=== PATIENT | female | born 1950 | race African-American/Black ===

== ENCOUNTER 2019-10-29 01:47 | Day surgery (SDC) | payer MEDICARE, BC, SELFPAY ==
[2019-10-22 13:33] VITALS: BMI 32.2
--- NOTE | ~2019-10-29 | XR_ITS ---
XR chest port-a-cath/central, XR fl guide central line place 10/29/2019 10:52 (accession [id number]), 10/29/2019 10:54 (accession [id number]) Indication: Insertion of portacatheter Procedure: Fluoroscopy was performed for the clinical service for portacatheter insertion. 87 seconds of fluoroscopy. One fluoroscopic image. Post insertion there is an AP portable chest. Comparison: CT dated 10/13/2019 Findings: Interval insertion of left IJ portacatheter, tip in the SVC. Heart size is normal. There ar e bilateral pulmonary nodules in the lower lungs, largest on the right measuring 2.8 cm. There is lob ulated appearance to the hilum bilaterally, consistent with lymphadenopathy. Impression: 1: Portacatheter tip in the SVC. 2: Bilateral pulmonary nodules with bilateral hilar adenopathy, consistent with metastases. Reviewed, dictated and finalized at location B. ICAL SERVICES PROFESSIONAL Impression: 1: Portacatheter tip in the SVC. 2: Bilateral pulmonary nodules with bilateral hilar adenopathy, consistent wit h metastases. Impression: 1: Portacatheter tip in the SVC. 2: Bilateral pulmonary nodules with bilateral hilar adenopathy, consistent wit h metastases.
[2019-10-29] MEDS: LACTATED RINGERS 1,000 ML 30 ML IV CONT (09:10)
[2019-10-29] MEDS: IBUPROFEN IV 800 MG/200 ML 800 MG/200 ML BAG 400 MG IVPB (09:15)
--- NOTE | 2019-10-29 09:15 | P.PNAN_ITS ---
Anes - Initial Pre Proc Eval Procedure: Operation Date: 10/29/19 10:00 Proposed Procedures p Insertion Port A Cath - Daniel Perera DO Date/Time: 10/29/19 09:15 Surgeon: Daniel Perera DO Pre Op Diagnosis: Malignant Neoplasm Of UOQ Right Breast Patient Data Age: 69 Gender: F Height: 1.6 m Weight: 82.55 kg Allergies Allergy/AdvReac Type Severity Reaction Status Date / Time Penicillins Allergy Intermediate Hives Verified 10/22/19 13:46 metformin AdvReac Unknown Nausea Verified 10/22/19 13:47 Home Medications Medication Instructions Recorded Confirmed Type calcium carbonate-vitamin D3 1 cap PO DAILY 09/11/19 10/28/19 History glimepiride 4 mg PO DAILY 09/11/19 10/28/19 History multivitamin 1 tablet PO DAILY 09/11/19 10/28/19 History letrozole 2.5 mg PO DAILY 10/13/19 10/28/19 History lisinopril-hydrochlorothiazide 1 tablet PO DAILY 10/13/19 10/28/19 History sitagliptin [Januvia] 100 mg PO DAILY 10/13/19 10/28/19 History aspirin 81 mg PO DAILY 10/22/19 10/28/19 History hydroxyzine HCl 25 mg PO BID PRN 10/22/19 10/28/19 History omeprazole 20 mg capsule,delayed See Rx Instructions PO DAILY 10/28/19 10/28/19 History release simvastatin 10 mg tablet 10 mg PO QPM tablet 10/28/19 10/28/19 History triamcinolone acetonide 0.5 % 1 applic TOPICAL TID PRN #454 gm 10/28/19 10/28/19 Rx topical cream zolpidem 5 mg tablet 5 mg PO .COMPLEX 10/28/19 10/28/19 History Patient hx anesthesia problems: none Family hx anesthesia problems: none PMFSH Past Medical History Medical History (Updated 10/29/19 @ 09:16 by Xander Washington MD) Arthritis Bone metastasis (~10/2018) Bronchitis Diabetes Dyspnea on exertion HTN (hypertension) Malignant neoplasm of unspecified site of right female breast Metastatic breast cancer Other hyperlipidemia 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 Reactive depression Sleep apnea, unspecified Surgical History Surgical History (Updated 10/28/19 @ 15:18 by Ida Trotter MD) History of bilateral mastectomy History of section History of dilation and curettage History of eye surgery lt eye, due to clogged tear duct History of left knee replacement Social History Social History Smoking status: Former smoker Second hand tobacco smoke exposure: No Smoking end date: 11/26/00 Additional smoking assessment comments: Smoked only as a teenager Alcohol intake: never Gender identity (if verbalized by the patient): Female Anes - Eval Final PreProcedure Day of Procedure 10/29/19 09:15 Informed Consent: The patient's anesthetic plan and its attendant risks and benefits were discussed with the patient/family/POA. Questions were solicited and answers provided to the satisfaction of the patient/family/POA.
[2019-10-29 09:31] LABS: INR 1.1; Prothrombin Time 13.4 Seconds (11.1-14.7)
--- NOTE | 2019-10-29 09:34 | PM.IMHP ---
H&P: HPI History of Present Illness Chief complaint: Malignant Neoplasm Of UOQ Right Breast Narrative: Aparna Edwards is a 69 year old female who [facility]. She has right breast cancer metastatice to the lung. She is in need of starting chemo. 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 Reactive depression Sleep apnea, unspecified Surgical History Surgical History History of bilateral mastectomy History of section History of dilation and curettage History of eye surgery lt eye, due to clogged tear duct History of left knee replacement Family History Family History Mother Hypertension Family history of type 2 diabetes mellitus Family history of diabetes mellitus in first degree relative Sibling Family history of congenital heart disease Family history of diabetes mellitus in first degree relative Other Diabetes mellitus Family history of throat cancer Social History Social History Smoking status: Former smoker Second hand tobacco smoke exposure: No Smoking end date: 11/26/00 Additional smoking assessment comments: Smoked only as a teenager Alcohol intake: never Gender identity (if verbalized by the patient): Female Meds Home Medications and Allergies Home Medications Medication Instructions Recorded Confirmed Type calcium carbonate-vitamin D3 1 cap PO DAILY 09/11/19 10/28/19 History glimepiride 4 mg PO DAILY 09/11/19 10/28/19 History multivitamin 1 tablet PO DAILY 09/11/19 10/28/19 History letrozole 2.5 mg PO DAILY 10/13/19 10/28/19 History lisinopril-hydrochlorothiazide 1 tablet PO DAILY 10/13/19 10/28/19 History sitagliptin [Januvia] 100 mg PO DAILY 10/13/19 10/28/19 History aspirin 81 mg PO DAILY 10/22/19 10/28/19 History hydroxyzine HCl 25 mg PO BID PRN 10/22/19 10/28/19 History omeprazole 20 mg capsule,delayed See Rx Instructions PO DAILY 10/28/19 10/28/19 History release simvastatin 10 mg tablet 10 mg PO QPM tablet 10/28/19 10/28/19 History triamcinolone acetonide 0.5 % 1 applic TOPICAL TID PRN #454 gm 10/28/19 10/28/19 Rx topical cream zolpidem 5 mg tablet 5 mg PO .COMPLEX 10/28/19 10/28/19 History Allergies Allergy/AdvReac Type Severity Reaction Status Date / Time Penicillins Allergy Intermediate Hives Verified 10/22/19 13:46 metformin AdvReac Unknown Nausea Verified 10/22/19 13:47 Exam Const: General: alert; No acute distress Orientation/consciousness: oriented x3 Limitations: no limitations HENMT: Head: normocephalic and atraumatic Ears: hearing grossly normal bilaterally General nose exam: external nose normal and nares normal Mouth: Yes oral mucosae normal and Yes moist mucous membranes Eyes: General: appearance normal, both eyes and all related structures Conjunctivae: conjunctivae normal Sclera: sclerae normal Pupils: PERRL EOM: EOM intact bilaterally Neck: Neck: normal visual inspection, full ROM, no lymphadenopathy, supple and no JVD Lymphatic: no lymphadenopathy noted Chest: Chest palpation & inspection: normal inspection of the chest Resp: Effort & Inspection: normal respiratory effort and able to speak in complete sentences Auscultation: clear to auscultation bilaterally Percussion: percussion normal Cardio: Jugular venous distension: no JVD Rate: regular rate Rhythm: regular rhythm Heart sounds: S1 normal and S2 normal Peripheral pulses: pulses 2+
[2019-10-29] MEDS: CLINDAMYCIN 900 MG/NS 50 ML 900 MG/50 ML PIGGYBACK 50 MG IVPB (09:40)
--- NOTE | 2019-10-29 09:41 | PM.PROC ---
Procedure Note - Detailed Date of procedure: 10/29/19 Pre-op diagnosis: Malignant Neoplasm Of UOQ Right Breast Post-op diagnosis: same Procedure performed: Left internal jugular Port-A-Cath placement using ultrasound and fluoroscopic guidance Description of procedure: Procedure as well as risks, benefits, and alternatives were discussed with patient. Written consent was obtained and placed in chart prior to procedure. Patient was brought back to surgical suite. She was placed supine on operating table. Time-out was done confirm patient procedure. IV sedation was then administered by the Anesthesia Department. Her left chest and neck area was prepped and draped in sterile fashion using chlorhexidine prep. Patient was placed in Trendelenburg position. SonoSite ultrasound was used to identify the left internal jugular vein. It was visualized as a compressible vessel just lateral to the carotid artery. 1% lidocaine with epinephrine was infiltrated directly over the vessel under ultrasound guidance. An 18 gauge introducer needle was then advanced under ultrasound guidance directly into the left internal jugular vein. Dark nonpulsatile blood was aspirated. A 0.035 in guidewire was then advanced through the needle under fluoroscopic guidance. The guidewire was visualized advancing all the way down into the superior vena cava. 1% lidocaine with epinephrine was then infiltrated on the left anterior chest and along the tract up to the guidewire insertion site. A 3 cm incision was made with a 15 blade scalpel, and electrocautery was then used for dissection down through the subcutaneous tissue to the pectoral fascia. A pocket was created just inferior to the incision using blunt dissection. A small benton incision was then also made at the insertion site at the neck. The tunneler was then advanced from the chest incision up to the neck incision and the catheter tubing was brought up through this tract. The dilator and sheath were then advanced over the guidewire under fluoroscopic visualization. The dilator and guidewire were then removed leaving the sheath in place. The catheter tubing was then advanced through the sheath under fluoroscopic guidance. The sheath was unsnapped and carefully peeled away. The catheter tubing was released underneath the neck incision. Fluoroscopy was used to confirm proper placement of the catheter tubing and no kinks along its path. The catheter was then cut to proper length and secured to the port. The port was then accessed with a De Leon needle and aspirated and flushed with heparinized saline. The port function with ease. The port was then hep-locked with Hep-Lock solution. The port was then placed within the pocket that was created, and was secured to the fascia using 3 0 Prolene simple interrupted sutures. The patient was flattened out in bed. Jeff's fascia was reapproximated using 3 0 Vicryl simple interrupted sutures. The skin of the incisions was then approximated using 4-0 Monocryl subcuticular suture. Exofin glue was then applied on top. The patient was then awakened from anesthesia and transferred to recovery. Implants: Bard power port Anesthesia: MAC and local (1% lidocaine with epinephrine) Surgeon: Daniel Perera DO Estimated blood loss (mL): 5 Complications: No immediate complications Condition: stable Disposition: same day Findings: This is a 69-year-old woman with a known history of metastatic breast cancer who is in need of resuming chemotherapy. She has evidence of metastatic breast cancer to her lungs. Her breast cancer was originally on the right side. She also previously had a port placed on the right side which has since been removed. Discussions were made with the patient about treatment options, and decision was made to proceed with Port-A-Cath placement. Bard power port was placed via a left internal jugular vein approach on the left chest. SonoSite ultrasound guidance was used to identify t
[2019-10-29 09:58] VITALS: BP 168/88; PULSE 93; RESP 20; TEMP 36.3
[2019-10-29] MEDS: LIDO 1%/EPINEPHRINE 1:100,000 20 ML VIAL 10 ML INFILTRATE (10:02)
[2019-10-29] MEDS: HEPARIN SODIUM, PORCINE 10,000 UNITS/10 ML VIAL 1 UNITS IV PUSH (10:04)
[2019-10-29] MEDS: HEPARIN SODIUM 5,000 UNITS/ML VIAL 5000 UNITS IRRIGATION (10:07)
--- NOTE | 2019-10-29 10:26 | SUR.OPER ---
ebl=5ml
[2019-10-29 10:44] VITALS: BP 153/73; PULSE 103; RESP 16
[2019-10-29 11:00] VITALS: BP 152/77; PULSE 92; RESP 16
[2019-10-29 11:30] VITALS: BP 158/80; PULSE 96; RESP 16
[2019-10-29] MEDS: ONDANSETRON INJ 4 MG/2 ML VIAL IV PUSH (11:45)
[2019-10-29 12:00] VITALS: BP 171/80; PULSE 100; RESP 16
--- NOTE | 2019-10-29 12:18 | SUR.PHASEII ---
Addendum entered by Aisha Schwartz RN 10/29/19 14:19: 1200 late entry: PT STATES PAIN IS NOW 1/10 AND HAS NO NAUSEA. Original Note: 1145 PT C/O'D NAUSEA. ZOFRAN GIVEN. DR. FREGOSO CALLED FOR HYDROCODONE AND ZOFRAN SCRIPTS PER PT'S REQUEST.
== END 2019-10-29 12:10 | disposition home or self-care (01) ==
PROVIDERS: PCP Family Medicine; Visit Provider Surgery
PROC: (CPT 36561; principal; 2019-10-29 10:00)
DX: C50.411 Malignant neoplasm of upper-outer quadrant of right female breast (principal); I10 Essential (primary) hypertension; E78.5 Hyperlipidemia, unspecified; G47.30 Sleep apnea, unspecified; E11.9 Type 2 diabetes mellitus without complications; G62.82 Radiation-induced polyneuropathy; F32.9 Major depressive disorder, single episode, unspecified; Z87.891 Personal history of nicotine dependence; Z79.82 Long term (current) use of aspirin
CPT/HCPCS: 36561; 36415; 77001; 85610; 85730; A9270; C1788; J1100; J1644; J1741; J2250; J2405; J2704; J3010; J7030; J7120

== ENCOUNTER 2020-04-26 08:40 | Outpatient (CLI) | payer MEDICARE, MEDICAID, SELFPAY ==
--- NOTE | ~2020-04-26 | CT_ITS ---
EXAMINATION: CT chest abdomen pelvis w con EXAM DATE: 04/26/2020 09:40 INDICATION: Follow-up right-sided breast cancer, lung cancer. TECHNIQUE: Spiral CT of the chest, abdomen and pelvis was performed following intravenous injection o f 100 mL Omnipaque 350. Axial, coronal and sagittal images were reviewed. Coronal maximum intensity pixel images of chest reviewed. The dose-length product (DLP) for this examination was 931.20 mGy-c m. The exposure was tailored according to patient size (auto mA exposure control), and iterative rec onstruction (ASIR) was used as additional dose reduction technique. Comparison is made to prior exami nation from 10/13/2019. FINDINGS: CHEST: Left-sided portacatheter. There is been mild interval decrease in size of the scattered pulmon renan metastatic lesions, with a right middle lobe nodule measuring 2.2 x 1.7 cm (was 3.0 x 2.1 cm). Ot her nodules have decreased in size to a similar extent. There is been much more substantial decrease in size of previously seen metastatic mediastinal lymphadenopathy, now largest right lower paratrache al region measuring 1.7 x 1.3 cm. Status post right-sided mastectomy. There are no pleural or perica rdial effusions. Tracheobronchial tree is patent. There is no mediastinal, hilar or axillary lymp hadenopathy. There is no pneumothorax. Heart normal in size. No evidence of coronary arterial c alcification. ABDOMEN PELVIS: The liver, spleen, adrenal glands and pancreas are unremarkable. There is peripheral ly calcified 1.3 cm gallstone within an otherwise unremarkable gallbladder. Portal and splenic veins are patent. Kidneys enhance symmetrically. There is no hydronephrosis. The uterus is unremarkabl e. The bladder is unremarkable. There is no retroperitoneal or pelvic lymphadenopathy. The appendix is normal. The stomach and small bowel are unremarkable. There is expected amount of c olonic stool. No free intraperitoneal gas. Sclerotic T6 vertebral body consistent with metastatic disease. Left 6th and 7th rib sclerotic foci anteriorly, metastatic and/or subacute to chronic fract ures.. IMPRESSION: 1. Mild interval decrease in size of multiple pulmonary metastatic nodules. 2. Significant interval decrease in size of mediastinal lymphadenopathy. 3. Osteoblastic disease. 4. Cholelithiasis. Reviewed, dictated and finalized at location A.
[2020-04-26 09:32] LABS: Estimated Glomerular Filt Rate > 60
--- NOTE | 2020-04-26 09:32 | PC.NURSE ---
PT'S PORT A CATH ACCESSED FOR CT SCAN WITH 1 INCH SWAN NEEDLE. +BLOOD RETURN. FLUSHES EASILY. TEGADERM APPLIED. PT TOLERATED PROCEDURE WELL.
--- NOTE | 2020-04-26 09:50 | PC.NURSE ---
PT'S PORT A CATH WAS DEACCESSED AFTER FLUSHING WITH 10ML NS AND 5ML 100UNIT HEPARIN. PT TOLERATED WELL.
== END 2020-04-26 08:41 | disposition home or self-care (01) ==
LOC: ANHIMG 08:46
PROVIDERS: PCP Family Medicine; Visit Provider Internal Medicine
DX: C50.111 Malignant neoplasm of central portion of right female breast (principal); C79.51 Secondary malignant neoplasm of bone; C78.00 Secondary malignant neoplasm of unspecified lung
CPT/HCPCS: 36415; 71260; 74177; Q9967

== ENCOUNTER 2020-06-10 12:58 | Outpatient (RCR) | payer MEDICARE, MEDICAID, SELFPAY ==
[2020-06-10 13:05] VITALS: BMI 35.6
== END 2020-08-30 11:31 | disposition home or self-care (01) ==
LOC: ANHDMC 12:58
PROVIDERS: PCP Family Medicine; Visit Provider Family Medicine
DX: E11.49 Type 2 diabetes mellitus with other diabetic neurological complication (principal); E11.65 Type 2 diabetes mellitus with hyperglycemia; Z71.3 Dietary counseling and surveillance
CPT/HCPCS: 97802

== ENCOUNTER 2020-10-01 13:04 | Inpatient (IN) | payer MEDICARE, MEDICAID, SELFPAY ==
[2020-10-01] VITALS (30 sets, daily range): BP systolic 110–166; BP diastolic 60–83; PULSE 85–105; RESP 12–32; TEMP 36.4–36.6; O2SAT 98–100; BMI 36.2
--- NOTE | ~2020-10-01 | US_ITS ---
EXAMINATION: US carotid duplex BI DATE: 10/02/2020 11:50 INDICATION: Right frontoparietal infarct. TECHNIQUE: Grayscale, color Doppler, and pulsed Doppler images of the cervical carotid arteries were obtained. The degree of vessel stenosis is placed in one of the following categories: normal, <50%, 5 0-69%, >=70% but less than near-occlusion, near-occlusion, or total occlusion. Note that percent sten osis relative to normal distal artery lumen diameter is indirectly measured from velocity measurement s as described by Prasad, et al. Radiology 2003; 229:340-346. COMPARISON: None. FINDINGS: RIGHT: The right common carotid artery (CCA) peak systolic velocity (PSV) is 76 cm/s. The right internal car otid artery (ICA) PSV is 48 cm/s. The right ICA end-diastolic velocity (EDV) is 19 cm/s. The right IC A/CCA PSV ratio is 0.6. Grayscale and color Doppler images yield an estimate of <50% diameter reducti on from plaque in the ICA. There is antegrade flow in the right vertebral artery. LEFT: The left CCA PSV is 100 cm/s. The left ICA PSV is 71 cm/s. The left ICA EDV is 21 cm/s. The left ICA/ CCA PSV ratio is 0.7. Grayscale and color Doppler images yield an estimate of <50% diameter reduction from plaque in the ICA. There is antegrade flow in the left vertebral artery. IMPRESSION: 1. <50% stenosis in the right internal carotid artery. 2. <50% stenosis in the left internal carotid artery. Reviewed, dictated and finalized at location A. UCT/DEVICE TECHNOLOGIST
--- NOTE | ~2020-10-01 | MR_ITS ---
EXAMINATION: MR brain/brain stem wo/w con DATE: 10/02/2020 13:25 INDICATION: Dizziness. TECHNIQUE: Magnetic resonance imaging (MRI) of the brain and brainstem was performed without and with 17 mL MultiHance intravenous contrast. Sequences included sagittal and axial T1-weighted FSE, axial diffusion-weighted FS EPI, axial T2*-weighted GRE, axial T2-weighted FLAIR Propeller, and axial T2-we ighted Propeller. Postcontrast sequences included axial, sagittal, and coronal T1-weighted FSE. Appar ent diffusion coefficient (ADC) maps were created. COMPARISON: Brain MRI 01/01/2019, head CT 10/01/2020 FINDINGS: There are scattered areas of nonspecific increased T2-weighted signal intensity in the cere bral white matter, which is within normal limits for the patient's age. There is a small old infarct in right frontoparietal region. There is no intracranial hemorrhage, acute infarction, or abnormal in tracranial mass lesion. The ventricles are normal in size. There is mucosal thickening in sphenoid si nus. The orbits are normal. The mastoid air cells are normal. IMPRESSION: 1. 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 Reviewed, dictated and finalized at location A. WHEEL ALIGNMENT SPECIALIST
--- NOTE | ~2020-10-01 | CT_ITS ---
EXAMINATION: CT brain wo con DATE: 10/01/2020 17:19 INDICATION: Dizziness. TECHNIQUE: Computed tomography (CT) of the head was performed without intravenous contrast. The mA wa s adjusted according to patient size. Iterative reconstruction technique was employed. The dose-lengt h product was 605.33 mGy-cm. COMPARISON: Head CT 03/14/17, brain MRI 01/01/2019 FINDINGS: There is an infarct in right frontoparietal region. There is no intracranial hemorrhage or abnormal mass lesion. The ventricles are normal in size. The paranasal sinuses are clear. The mastoid air cells are normal. The orbits are normal. IMPRESSION: 1. Age-indeterminant infarct in right frontoparietal region, new from 01/01/2019. Reviewed, dictated and finalized at location A. GER DATA
--- NOTE | ~2020-10-01 | XR_ITS ---
EXAMINATION: XR chest 2V EXAM DATE: 10/01/2020 14:20 INDICATION: Tightness in chest. Orthostatic hypotension. Dizziness. TECHNIQUE: Frontal and lateral projections of the chest obtained and reviewed. Comparison is made to prior examination from 12/07/2019. FINDINGS: There is a Chemo-Port on the left side with intact line. Patient's largest pulmonary metast atic lesion is identified in the right middle lobe. Scattered other pulmonary nodules are less well-v isualized, could be in response to treatment. No acute airspace disease, pneumothorax or pleural effu wendy. Cardiomediastinal silhouette is normal. There is a dense appearing mid thoracic vertebral body compared to prior study, also left 6th rib anteriorly, possible osteoblastic disease. IMPRESSION: 1. Pulmonary metastases with improvement. 2. 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 3. No acute cardiac pulmonary findings. Reviewed, dictated and finalized at location B. SUPERVISOR
--- NOTE | 2020-10-01 13:51 | ECG_ITS ---
Measurements Intervals [place] Rate: 87 P: 57 MI: 159 QRS: 42 QRSD: 77 T: 44 QT: 348 QTc: 420 Interpretive Statements SINUS RHYTHM RSR' IN V1 OR V2, CONSIDER RIGHT VENTRICULAR HYPERTROPHY OR RIGHT VCD VOLTAGE CRITERIA FOR LVH BORDERLINE ECG Electronically Signed On 10-01-2020 14:39:34 CHIP BIN CONVEYOR TENDER by Gerardo Page D.O.
--- NOTE | 2020-10-01 14:02 | PC.NURSE ---
Unable to draw blood at triage. Patient does have port which can be accessed when the patient is in a room.
[2020-10-01 15:41] LABS: Basophils Percent Auto 0.2 % (0.2-1.2); Eosinophils Percent Auto 0.9 % (0-4.4); Hematocrit 34.3 % (37.0-47.0); Hemoglobin 11.4 g/dL (12.0-15.0); Immature Granulocyte Absolute 0.01 K/mm3 (0.00-0.031); Immature Granulocyte Percent A 0.2 % (0-0.5); Lymphocytes Absolute Auto 2.04 K/mm3 (0.9-3.2); Lymphocytes Percent Auto 43.4 % (18.3-44.2); Mean Corpuscular HGB Conc 33.2 g/dl (32-36); Mean Corpuscular Hemoglobin 36.2 pg (26-34); Mean Corpuscular Volume 108.9 fl (80-100); Mean Platelet Volume 9.8 fl (7.4-10.4); Monocytes Absolute Auto 0.6 K/mm3 (0.1-0.6); Monocytes Percent Auto 12.1 % (2.6-8.5); Neutrophils Percent Auto 43.2 % (45.5-73.1); Platelet Count Result 118 k/mm3 (150-375); Red Blood Count 3.15 M/mm3 (4.2-5.4); Red Cell Distribution Width 14.8 % (11.5-14.5); White Blood Count 4.7 K/mm3 (4.5-10.0)
--- NOTE | 2020-10-01 15:49 | PC.NURSE ---
patient has perforated bowel. ASA held. waiting for further orders from provider.
[2020-10-01 15:54] LABS: Anion Gap 4 mmol/L (8-16); Blood Urea Nitrogen 16 mg/dL (7-17); Calcium 9.4 mg/dL (8.4-10.2); Carbon Dioxide 29 mmol/L (22-30); Chloride 99 mmol/L (98-107); Estimated CRCL calculation 68 ml/min; Estimated Glomerular Filt Rate > 60; Glucose 273 mg/dL (65-105); INR 1.1; Potassium 4.2 mmol/L (3.4-5.0); Sodium 132 mmol/L (137-145)
[2020-10-01 16:06] LABS: Troponin I < 0.012 ng/mL (0.000-0.034)
--- NOTE | 2020-10-01 17:19 | ED.WEAKNESS ---
HPI - Weakness General Chief complaint: Weakness Stated complaint: weakness Time Seen by Provider: 10/01/20 15:16 History of Present Illness HPI Narrative: Patient is a 70-year-old female who presents the ER from her doctor's office for reports of orthostatic hypotension as well as severe hyperglycemia greater than 500. Patient reports compliance with medications. Reports dizziness occurs with positional change. She has no fevers or chills or sweats. No chest pain or shortness of breath. Patient does have history of metastatic breast cancer for which she receives chemotherapy. She reports over the last couple months her hands and feet of darken is a side effect from the chemotherapy. Patient also notes that she is having central chest pain that is intermittent and pressure-like. It occurs when she is anxious. Ongoing for months. No previous cardiac issues. No pain with deep breath. No exertional chest pain. Related Data Home Medications Medication Instructions Recorded Confirmed calcium carbonate-vitamin D3 1 cap PO DAILY 09/11/19 10/01/20 multivitamin 1 tablet PO DAILY 09/11/19 10/01/20 capecitabine 500 mg tablet See Rx Instructions PO .COMPLEX 11/28/19 10/01/20 tablet ascorbate calcium (vitamin C) 500 500 mg PO DAILY 06/08/20 10/01/20 mg tablet cyanocobalamin (vitamin B-12) 50 50 mcg PO DAILY 06/08/20 10/01/20 mcg lozenges sitagliptin 100 mg tablet 100 mg PO QAM tablet 06/29/20 10/01/20 denosumab 120 mg/1.7 mL (70 mg/mL) 120 mg SUB-Q ONCE 08/18/20 10/01/20 subcutaneous solution omega-3 fatty acids 1,000 mg 1,000 mg PO DAILY 10/01/20 10/01/20 capsule Allergies Allergy/AdvReac Type Severity Reaction Status Date / Time Penicillins Allergy Intermediate Hives Verified 10/01/20 11:27 metformin AdvReac Unknown Nausea Verified 10/01/20 11:27 Review of Systems Review of Systems: All systems reviewed & are unremarkable except as noted in HPI and below Constitutional: Constitutional: Denies chills, Denies fever(s) and Denies weakness ENT: Denies nasal congestion and Denies sore throat Cardiovascular: Cardiovascular: Reports chest pain, Denies rapid heart rate and Denies radiating jaw, neck or arm pain Respiratory: Respiratory: Denies cough, Denies dyspnea and Denies wheezing Gastrointestinal: Gastrointestinal: Denies abdominal pain, Denies nausea and Denies vomiting Neurologic: Reports dizziness, Denies focal weakness and Denies numbness PMFSH Past Medical History Medical History (Updated 10/01/20 @ 18:58 by Ariel Dodge MD) Arthritis Bone metastasis (~10/2018) Bronchitis Diabetes Dyspnea on exertion HTN (hypertension) Malignant neoplasm of unspecified site of right female breast Metastatic breast cancer Other hyperlipidemia 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 Reactive depression Sleep apnea, unspecified Surgical History Surgical History History of bilateral mastectomy History of section History of dilation and curettage History of eye surgery lt eye, due to clogged tear duct History of left knee replacement Family History Family History Mother Hypertension Family history of type 2 diabetes mellitus Family history of diabetes mellitus in first degree relative Sibling Family history of congenital heart disease Family history of diabetes mellitus in first degree relative Other Diabetes mellitus Family history of throat cancer Social History Social History Smoking status: Never smoker Second hand tobacco smoke exposure: No Smoking end date: 11/26/00 Additional smoking assessment comments: Smoked only as a teenager Alcohol intake: never Gender identity (if verbalized by the patient): Female Spiritual care concerns: No Exam Narrative: Exam Narrative: GENERAL: Well-appearing, well-nourished
[2020-10-01] MEDS: MECLIZINE HCL 25 MG TABLET PO (17:22)
[2020-10-01] MEDS: ASPIRIN 81 MG CHEWABLE TABLET 324 MG (17:23)
--- NOTE | 2020-10-01 18:10 | PC.NURSE ---
repeat trop drawn from port. patient updated on current treatment plan. planning for admission. needs MRI of brain. states ED provider has updated on her on test results and plan for admission. wants to eat.
[2020-10-01 18:46] LABS: Troponin I < 0.012 ng/mL (0.000-0.034)
--- NOTE | 2020-10-01 18:55 | PC.NURSE ---
SBAR completed. faxed and tubed to 3rd floor.
--- NOTE | 2020-10-01 19:41 | PC.NURSE ---
report given to RN on 3rd floor. will transfer to 347. patient aware.
--- NOTE | 2020-10-01 19:55 | ADMGEN ---
This patient, Aparna Edwards, was admitted to Medical Room 347-. Patient/family oriented to hospital policies and general routines including ID bracelet, bed and alarms, visiting hours, pain management, procedures, bathroom and other care routines, personal items, smoking policy, room service/diet, and visiting hours. Information on how to activate the Rapid Response Team has been discussed. Patient/Family are encouraged to report perceived risks to care and to ask questions if they do not understand what they are told or what they should do.
[2020-10-01 21:58] LABS: Glucose Point of Care 226 (65-105)
[2020-10-01 22:01] LABS: Troponin I < 0.012 ng/mL (0.000-0.034)
[2020-10-02] VITALS (11 sets, daily range): BP systolic 114–141; BP diastolic 47–74; PULSE 82–119; RESP 14–18; TEMP 35.7–36.6; O2SAT 100
--- NOTE | 2020-10-02 | ECHO_ITS ---
Patient Info Name: Aparna Edwards Age: 70 years : 1950 Gender: Female Ht: 62 in Wt: 198 lbs BSA: 2.03 m2 HR: 86 bpm BP: 127 / 52 mmHg Heart Rhythm: Sinus Rhythm Technical Quality: Good Exam Date: 10/02/2020 7:49 AM Exam Location: [facility] Exam Room: 347 Patient Status: Inpatient Admit Date: 10/02/2020 Staff Ordering Physician: Navneet Farrell MD Sand Control Worker: Baylee Hubbard RDCS Attending Provider: Niki Vivas PA-C Referring Physician: Jami VEGA; Exam Type: CA echo doppler w bubble study Study Info Complete two-dimensional, color flow and Doppler transthoracic echocardiogram is performed with agitated saline. Contrast/Agitated Saline Contrast/Ag. Saline: Agitated Saline Amount: 20.00 ml Summary 1. Left ventricular systolic function is normal, estimated at 65-70%. 2. There is upper limits of normal left ventricular wall thickness. 3. The left ventricular diastolic function is grade I diastolic dysfunction. 4. No interatrial shunt with injection of agitated saline without Valsalva. Bubble study with Valsalva suboptimal and indeterminate. 5. There is trace mitral valve regurgitation. 6. There is no aortic valve stenosis. 7. There is trace tricuspid valve regurgitation. 8. Mild pulmonary hypertension, estimated pulmonary arterial systolic pressure is 36 mmHg. Recommendations * Consider transesophageal echocardiogram if clinically indicated. Left Ventricle Left ventricular chamber dimension is normal. Left ventricular systolic function is normal, estimated at 65-70%. There is upper limits of normal left ventricular wall thickness. The left ventricular diastolic function is grade I diastolic dysfunction. Right Ventricle Right ventricular chamber dimension is normal. Right ventricular systolic function is normal. Left Atria Left atrial chamber dimension is normal. Right Atria Right atrial chamber dimension is normal. Atrial Septum No interatrial shunt with injection of agitated saline without Valsalva. Bubble study with Valsalva suboptimal and indeterminate. Aortic Valve The aortic valve is trileaflet. There is no aortic valve stenosis. There is no aortic valve regurgitation. Pulmonic Valve The pulmonic valve is not well visualized. Mitral Valve The mitral valve has normal leaflets. There is trace mitral valve regurgitation. Tricuspid Valve The tricuspid valve leaflets are normal. There is trace tricuspid valve regurgitation. Mild pulmonary hypertension, estimated pulmonary arterial systolic pressure is 36 mmHg. Pericardium/Pleural The pericardium appears normal. There is no pericardial effusion. Inferior Vena Cava Normal inferior vena cava with >50% collapse upon inspiration consistent with normal right atrial pressure, 5 mmHg. Aorta The aortic root size at the sinus of Valsalva is normal. Left Ventricular Outflow Tract Name Value Normal LVOT 2D LVOT Diameter 2.0 cm LVOT Doppler LVOT Peak Gradient 5 mmHg LVOT Mean Gradient 3 mmHg
--- NOTE | 2020-10-02 00:24 | PM.IMHP ---
H&P: HPI History of Present Illness Date/Time: 10/02/20 00:24 Chief complaint: dizziness, new cerebral infarct Narrative: This is a 70 year old Diabetic female who presented to the hospital from her doctor's office yesterday secondary to dizziness and elevated blood glucose of 500 mg/dl. The patient was previously on insulin but admits that her doctor took her off of her insulin because it apparently wasn't helping her. She admits that her last HgbA1c was >10 about 1 month ago. She has been having dizziness with any movement for the past few days. She believed that this may have been due to her chemotherapy which she receives for metastatic breast cancer. The patient was evaluated in the ER yesterday and CT brain demonstrated an age-indeterminant infarct in right frontoparietal region, new from 01/01/2019. She denies any recent fevers, neck stiffness, blurry vision, slurred speech, chest pain, cough, shortness of breath, abdominal pain, nausea, vomiting, diarrhea or other focal neurological symptoms. No other complaints. 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 Reactive depression Sleep apnea, unspecified Surgical History Surgical History History of bilateral mastectomy History of section History of dilation and curettage History of eye surgery lt eye, due to clogged tear duct History of left knee replacement Family History Family History Mother Family history of diabetes mellitus in first degree relative Family history of type 2 diabetes mellitus Hypertension Sibling Family history of diabetes mellitus in first degree relative Family history of congenital heart disease Lung cancer Other Diabetes mellitus Family history of throat cancer Social History Social History Smoking packs per day: 0.5 Smoking cigarettes per day: 10.0 Years smoked: 8 Smoking pack-years: 4.00 Smoking status: Former smoker Second hand tobacco smoke exposure: No Smoking end date: 11/26/00 Additional smoking assessment comments: Smoked only as a teenager Alcohol intake: never Substance use: never Gender identity (if verbalized by the patient): Female Spiritual care concerns: No Meds Home Medications and Allergies Home Medications Medication Instructions Recorded Confirmed Type calcium carbonate-vitamin D3 1 cap PO DAILY 09/11/19 10/01/20 History multivitamin 1 tablet PO DAILY 09/11/19 10/01/20 History capecitabine 500 mg tablet See Rx Instructions PO .COMPLEX 11/28/19 10/01/20 History tablet lisinopril 20 1 tablet PO DAILY #90 tablet 04/12/20 10/01/20 Rx mg-hydrochlorothiazide 12.5 mg tablet cyanocobalamin (vitamin B-12) 50 50 mcg PO DAILY 06/08/20 10/01/20 History mcg lozenges sitagliptin 100 mg tablet 100 mg PO QAM tablet 06/29/20 10/01/20 History denosumab 120 mg/1.7 mL (70 mg/mL) 120 mg SUB-Q ONCE 08/18/20 10/01/20 History subcutaneous solution pioglitazone 45 mg tablet 45 mg PO DAILY #30 tablet 09/08/20 10/01/20 Rx atorvastatin 80 mg PO DAILY 10/01/20 10/01/20 History fluticasone propionate 2 spray INTRANASAL DAILY 10/01/20 10/01/20 History glimepiride 4 mg PO DAILY 10/01/20 10/01/20 History hydrocodone-acetaminophen [[place]] 1 tablet PO Q6-8H PRN 10/01/20 10/01/20 History omega-3 fatty acids 1,000 mg 1,000 mg PO DAILY 10/01/20 10/01/20 History capsule zolpidem 5 mg PO PRN PRN 10/01/20 10/01/20 History
[2020-10-02 06:25] LABS: Basophils Percent Auto 0.5 % (0.2-1.2); Eosinophils Absolute Auto 0.1 K/mm3 (0-0.3); Eosinophils Percent Auto 1.6 % (0-4.4); Hematocrit 31.1 % (37.0-47.0); Hemoglobin 10.6 g/dL (12.0-15.0); Immature Granulocyte Absolute 0.01 K/mm3 (0.00-0.031); Immature Granulocyte Percent A 0.3 % (0-0.5); Lymphocytes Absolute Auto 1.79 K/mm3 (0.9-3.2); Lymphocytes Percent Auto 46.5 % (18.3-44.2); Mean Corpuscular HGB Conc 34.1 g/dl (32-36); Mean Corpuscular Hemoglobin 37.2 pg (26-34); Mean Corpuscular Volume 109.1 fl (80-100); Mean Platelet Volume 9.7 fl (7.4-10.4); Monocytes Absolute Auto 0.5 K/mm3 (0.1-0.6); Monocytes Percent Auto 11.9 % (2.6-8.5); Neutrophils Absolute Auto 1.5 K/mm3 (1.3-6.7); Neutrophils Percent Auto 39.2 % (45.5-73.1); Platelet Count Result 107 k/mm3 (150-375); Red Blood Count 2.85 M/mm3 (4.2-5.4); Red Cell Distribution Width 14.6 % (11.5-14.5); White Blood Count 3.9 K/mm3 (4.5-10.0)
[2020-10-02 06:45] LABS: Anion Gap 3 mmol/L (8-16); Blood Urea Nitrogen 14 mg/dL (7-17); Calcium 8.8 mg/dL (8.4-10.2); Carbon Dioxide 30 mmol/L (22-30); Chloride 101 mmol/L (98-107); Estimated CRCL calculation 68 ml/min; Estimated Glomerular Filt Rate > 60; Glucose 218 mg/dL (65-105); Potassium 4.1 mmol/L (3.4-5.0); Sodium 134 mmol/L (137-145)
[2020-10-02 07:24] LABS: Glucose Point of Care 195 (65-105)
[2020-10-02] MEDS: FLUTICASONE PROPIONATE 0.05% NA SPR 16 GM BTL (*BKC) 2 SPRAY NASAL (08:44)
[2020-10-02] MEDS: CYANOCOBALAMIN 500 MCG TABLET PO (08:45)
[2020-10-02] MEDS: MULTIVITAMINS THERAPEUTIC TAB (*BKC) 1 TABLET PO (08:45)
[2020-10-02] MEDS: hydroCHLOROthiazide 12.5 MG CAPSULE PO (08:45)
[2020-10-02] MEDS: ATORVASTATIN 40 MG TABLET 80 MG PO (08:45)
[2020-10-02] MEDS: OMEGA 3 POLYUNSAT FATTY ACIDS 1 GM CAP PO (08:46)
[2020-10-02] MEDS: PIOGLITAZONE HCL 45 MG TABLET PO (08:46)
[2020-10-02] MEDS: lisinopriL 20 MG TABLET PO (08:46)
[2020-10-02] MEDS: GLIMEPIRIDE 2 MG TABLET 4 MG PO (08:46)
[2020-10-02] MEDS: MECLIZINE HCL 12.5 MG TABLET PO ×2 (09:05→17:12)
[2020-10-02] MEDS: ASPIRIN 81 MG ENTERIC TABLET PO (09:45)
[2020-10-02 11:56] LABS: Glucose Point of Care 208 (65-105)
[2020-10-02] MEDS: INSULIN ASPART (*BKC) 100 UNITS/ML SUB-Q ×2 (12:00→17:06)
--- NOTE | 2020-10-02 13:18 | WPDNEURCNPN ---
Assessment and Plan Assessment and plan (1) HTN (hypertension): Qualifiers: Hypertension type: unspecified Qualified Code(s): I10 - Essential (primary) hypertension Code(s): I10 - Essential (primary) hypertension Status: Chronic (2) Uncontrolled diabetes mellitus: Qualifiers: Diabetes mellitus type: type 2 Glycemic state: with hyperglycemia Qualified Code(s): E11.65 - Type 2 diabetes mellitus with hyperglycemia Code(s): E11.65 - Type 2 diabetes mellitus with hyperglycemia Status: Acute (3) Dizziness: Code(s): R42 - Dizziness and giddiness Status: Acute (4) Focal infarction of brain: Code(s): I63.9 - Cerebral infarction, unspecified Status: Acute Additional Plan dizziness could be in origin metabolic but considering multiple underlying risk factors her MRIs pending and will also do the EMG nerve conduction study as an outpatient Consult date: 10/02/20 Time Seen: 13:15 HPI: Aparna Edwards is a 70 year old female 70 years old admitted to the [facility] for the complaints of dizziness and hypertension in addition to the hyper glycemia patient reportedly had been on insulin but recently was taken of as it was unable to control her blood sugar her last hemoglobin A1c was more than 10 4 weeks ago she has been experiencing dizziness she has also received chemotherapy for the metastatic breast cancer her CT scan of the brain demonstrated infarct in the right frontoparietal region which was new from January 01, 2019 she had no associated general symptomatology evaluation up until now revealed WBC 3.9 hemoglobin 10.6 platelet count of 107 electrolytes not significant head CT scan revealed right frontoparietal infarct compared to study done on January 01, 2019 it was new other studies are pending 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 Reactive depression Sleep apnea, unspecified Surgical History Surgical History History of bilateral mastectomy History of section History of dilation and curettage History of eye surgery lt eye, due to clogged tear duct History of left knee replacement Family History Family History Mother Family history of diabetes mellitus in first degree relative Family history of type 2 diabetes mellitus Hypertension Sibling Family history of diabetes mellitus in first degree relative Family history of congenital heart disease Lung cancer Other Diabetes mellitus Family history of throat cancer Social History Social History Smoking packs per day: 0.5 Smoking cigarettes per day: 10.0 Years smoked: 8 Smoking pack-years: 4.00 Smoking status: Former smoker Second hand tobacco smoke exposure: No Smoking end date: 11/26/00 Additional smoking assessment comments: Smoked only as a teenager Alcohol intake: never Substance use: never Gender identity (if verbalized by the patient): Female Spiritual care concerns: No Meds Home Medications and Allergies Home Medications Medication Instructions Recorded Confirmed Type calcium carbonate-vitamin D3 1 cap PO DAILY 09/11/19 10/01/20 History multivitamin 1 tablet PO DAILY 09/11/19 10/01/20 History capecitabine 500 mg tablet See Rx Instructions PO .COMPLEX 11/28/19 10/01/20 History tablet lisinopril 20 1 tablet PO DAILY #90 tablet 04/12/20 10/01/20 Rx mg-hydrochlorothiazide 12.5 mg tablet
--- NOTE | 2020-10-02 15:59 | ECG_ITS ---
Measurements Intervals [place] Rate: 95 P: 53 OR: 153 QRS: 55 QRSD: 76 T: 57 QT: 343 QTc: 433 Interpretive Statements SINUS RHYTHM NORMAL ECG Electronically Signed On 10-02-2020 16:09:55 [employer] AND [employer] WORKER by Gerardo Page D.O.
--- NOTE | 2020-10-02 16:30 | PM.IMPN ---
Progress Note: A&P Assessment and Plan (1) Dizziness: Code(s): R42 - Dizziness and giddiness Status: Acute Assessment and Plan: Patient complains of dizziness that occurs upon standing. This is improved with meclizine, suggesting vertiginous nature. Echo performed with no evidence of valvular disease and no evidence of into atrial shunt. Carotid Dopplers showed <50% stenosis in right and left ICA. Neurology has been consulted and input is appreciated Monitor orthostatics Fall precautions Meclizine prn Admit for observation to med-surg, telemetry, Neurochecks, Fall precautions, Meclizine PRN for dizziness. Check TSH w/ reflex T4, Carotid doppler U/S, Echocardiogram, MRI brain in am. Neurology consult. Continue ASA thearpy. (2) Focal infarction of brain: Code(s): I63.9 - Cerebral infarction, unspecified Status: Acute Assessment and Plan: Head CT showed age-indeterminate infarct in the right frontoparietal region which is new from December 2018. Brain MRI showed small old infarct in right frontoparietal region. Neurology has been consulted as above and recommendations are appreciated Continue daily aspirin therapy Continue with neuro checks (3) Breast cancer metastasized to lung: Qualifiers: Laterality: right Qualified Code(s): C50.911 - Malignant neoplasm of unspecified site of right female breast; C78.00 - Secondary malignant neoplasm of unspecified lung Code(s): C50.919 - Malignant neoplasm of unspecified site of unspecified female breast; C78.00 - Secondary malignant neoplasm of unspecified lung Status: Chronic Assessment and Plan: Her oral chemotherapy is nonformulary and she will be bringing from home. continue oral chemo (4) Pancytopenia: Code(s): D61.818 - Other pancytopenia Status: Acute Assessment and Plan: Likely secondary to chemotherapy. Vital signs stable and no signs of blood loss. Monitor CBC with diff closely (5) Uncontrolled diabetes mellitus: Qualifiers: Diabetes mellitus type: type 2 Glycemic state: with hyperglycemia Qualified Code(s): E11.65 - Type 2 diabetes mellitus with hyperglycemia Code(s): E11.65 - Type 2 diabetes mellitus with hyperglycemia Status: Acute Assessment and Plan: Last A1c is 10.1. Blood sugars have been monitored and last glucose was 195. Accuchecks, SSI Coverage, hypoglycemic protocol. continue home oral hypoglycemic agents. (6) HTN (hypertension): Qualifiers: Hypertension type: unspecified Qualified Code(s): I10 - Essential (primary) hypertension Code(s): I10 - Essential (primary) hypertension Status: Chronic Assessment and Plan: Blood pressure evaluated and is stable at 127/52. Continue lisinopril and hydrochlorothiazide (7) Chest tightness: Code(s): R07.89 - Other chest pain Status: Acute Assessment and Plan: Patient complained of chest tightness at rest which was worse with cough. She has had 3 negative troponins. Stat EKG performed and is unchanged from initial EKG. Suspect this is musculoskeletal in nature. ACS not suspected. Analgesics as needed for pain. Monitor closely for symptoms Subjective Date/time seen: 10/02/20 16:30 Interval history: Date of service: 10/02/2020 Aparna Edwards is a 70-year-old female with history of diabetes mellitus, hypertension, YANG, and metastatic breast cancer currently on chemotherapy who is seen in follow-up for dizziness. She reports that her dizziness is improved today but she is still experiencing symptoms upon standing. She denies lightheadedness. She denies headache, visual changes, speech changes, difficulty swallowing, or weakness. She does complain of numbness and tingling in her hands and feet, but reports this is not unusual for her. She complains of back pain that is chronic in nature. She also complai
[2020-10-02 16:53] LABS: Glucose Point of Care 253 (65-105)
--- NOTE | 2020-10-02 18:31 | PHAR ---
PT'S HOME MED CAPECCITABINE 500 MG TABS VERIFIED BY PHARMACY
[2020-10-02 22:11] LABS: Glucose Point of Care 333 (65-105)
[2020-10-03] VITALS (10 sets, daily range): BP systolic 125–141; BP diastolic 60–74; PULSE 85–121; RESP 12–16; TEMP 36–36.3; O2SAT 100
[2020-10-03] MEDS: ACETAMINOPHEN 325 MG TABLET 650 MG PO ×3 (04:56→20:40)
[2020-10-03 05:19] LABS: Glucose Point of Care 225 (65-105)
[2020-10-03 05:28] LABS: Hematocrit 31.9 % (37.0-47.0); Hemoglobin 10.7 g/dL (12.0-15.0); Mean Corpuscular HGB Conc 33.5 g/dl (32-36); Mean Corpuscular Volume 110.4 fl (80-100); Mean Platelet Volume 9.6 fl (7.4-10.4); Platelet Count Result 123 k/mm3 (150-375); Red Blood Count 2.89 M/mm3 (4.2-5.4); White Blood Count 3.8 K/mm3 (4.5-10.0)
[2020-10-03 05:58] LABS: Anion Gap 5 mmol/L (8-16); Blood Urea Nitrogen 20 mg/dL (7-17); Calcium 8.9 mg/dL (8.4-10.2); Carbon Dioxide 28 mmol/L (22-30); Chloride 100 mmol/L (98-107); Estimated CRCL calculation 60 ml/min; Estimated Glomerular Filt Rate > 60; Glucose 248 mg/dL (65-105); Potassium 4.2 mmol/L (3.4-5.0); Sodium 133 mmol/L (137-145)
[2020-10-03 08:15] LABS: Glucose Point of Care 199 (65-105)
[2020-10-03] MEDS: FLUTICASONE PROPIONATE 0.05% NA SPR 16 GM BTL (*BKC) 2 SPRAY NASAL (09:17)
[2020-10-03] MEDS: GLIMEPIRIDE 2 MG TABLET 4 MG PO (09:17)
[2020-10-03] MEDS: OMEGA 3 POLYUNSAT FATTY ACIDS 1 GM CAP PO (09:18)
[2020-10-03] MEDS: PIOGLITAZONE HCL 45 MG TABLET PO (09:18)
[2020-10-03] MEDS: MULTIVITAMINS THERAPEUTIC TAB (*BKC) 1 TABLET PO (09:18)
[2020-10-03] MEDS: hydroCHLOROthiazide 12.5 MG CAPSULE PO (09:18)
[2020-10-03] MEDS: CYANOCOBALAMIN 500 MCG TABLET PO (09:18)
[2020-10-03] MEDS: ATORVASTATIN 40 MG TABLET 80 MG PO (09:18)
[2020-10-03] MEDS: lisinopriL 20 MG TABLET PO (09:19)
[2020-10-03] MEDS: ASPIRIN 81 MG ENTERIC TABLET PO (09:20)
[2020-10-03] MEDS: MECLIZINE HCL 12.5 MG TABLET PO (10:51)
[2020-10-03 11:52] LABS: Glucose Point of Care 228 (65-105)
[2020-10-03] MEDS: INSULIN ASPART (*BKC) 100 UNITS/ML SUB-Q (12:15)
--- NOTE | 2020-10-03 16:04 | PM.IMPN ---
Progress Note: A&P Assessment and Plan (1) Dizziness: Code(s): R42 - Dizziness and giddiness Status: Acute Assessment and Plan: Patient complains of dizziness that occurs upon standing. This is improved with meclizine, suggesting vertiginous nature. Echo performed with no evidence of valvular disease and no evidence of into atrial shunt. Carotid Dopplers showed <50% stenosis in right and left ICA. She is not orthostatic. TSH is wnl. Dizziness has improved. Neurology has been consulted and input is appreciated Monitor orthostatics Fall precautions Meclizine prn (2) Focal infarction of brain: Code(s): I63.9 - Cerebral infarction, unspecified Status: Acute Assessment and Plan: Head CT showed age-indeterminate infarct in the right frontoparietal region which is new from December 2018. Follow up brain MRI showed small old infarct in right frontoparietal region. She does not appear to have any deficits. Neurology has been consulted as above and recommendations are appreciated Continue daily aspirin therapy (3) Breast cancer metastasized to lung: Qualifiers: Laterality: right Qualified Code(s): C50.911 - Malignant neoplasm of unspecified site of right female breast; C78.00 - Secondary malignant neoplasm of unspecified lung Code(s): C50.919 - Malignant neoplasm of unspecified site of unspecified female breast; C78.00 - Secondary malignant neoplasm of unspecified lung Status: Chronic Assessment and Plan: She is established with Dr. Fitch. She is s/p bilateral mastectomy. CXR on 10/01 showed improvement of pulmonary metastases. Her oral chemotherapy is nonformulary and she will be bringing from home. Continue oral chemo Follow up with oncology as scheduled. (4) Pancytopenia: Code(s): D61.818 - Other pancytopenia Status: Acute Assessment and Plan: Likely secondary to chemotherapy. Vital signs stable and no signs of blood loss. Platelets are improving. Monitor CBC with diff closely (5) Uncontrolled diabetes mellitus: Qualifiers: Diabetes mellitus type: type 2 Glycemic state: with hyperglycemia Qualified Code(s): E11.65 - Type 2 diabetes mellitus with hyperglycemia Code(s): E11.65 - Type 2 diabetes mellitus with hyperglycemia Status: Acute Assessment and Plan: Last A1c is 10.1 (08/18/20). Blood sugars have been monitored daily and last glucose was elevated at 228. Accuchecks, SSI Coverage, hypoglycemic protocol. Continue home oral hypoglycemic agents. Consider additional bolus insulin if blood sugars remain elevated Diabetic diet (6) HTN (hypertension): Qualifiers: Hypertension type: unspecified Qualified Code(s): I10 - Essential (primary) hypertension Code(s): I10 - Essential (primary) hypertension Status: Chronic Assessment and Plan: Blood pressure evaluated today and is stable at 132/73. Overall, blood pressures have been well controlled. Continue lisinopril and hydrochlorothiazide (7) Chest tightness: Code(s): R07.89 - Other chest pain Status: Acute Assessment and Plan: Patient complains of chest tightness at rest which worsens with movement and cough. Pain is reproducible with palpation of chest wall and is alleviated with heating pad. She has had 3 negative troponins. Stat EKG performed 10/02/20 at onset of discomfort and is unchanged from initial EKG. Suspect this is musculoskeletal in nature. ACS not suspected. Analgesics as needed for pain. Supportive care to include heat or ice Monitor closely for symptoms Subjective Date/time seen: 10/03/20 16:04 Interval history: Date of service: 10/03/2020 Aparna Edwards is a 70-year-old female with history of diabetes mellitus, hypertension, YANG, and metastatic breast cancer currently on chemotherapy who is seen in follow-up for dizziness. She has not had
[2020-10-03 17:18] LABS: Glucose Point of Care 189 (65-105)
[2020-10-03 22:34] LABS: Glucose Point of Care 320 (65-105)
[2020-10-03 22:34] LABS: Glucose Point of Care 289 (65-105)
[2020-10-03] MEDS: INSULIN ASPART (*BKC) 100 UNITS/ML 6 UNITS SUB-Q (22:46)
[2020-10-04] VITALS: PULSE 92
[2020-10-04 04:00] VITALS: PULSE 87
[2020-10-04 05:17] LABS: Hematocrit 31.4 % (37.0-47.0); Hemoglobin 10.4 g/dL (12.0-15.0); Mean Corpuscular HGB Conc 33.1 g/dl (32-36); Mean Corpuscular Hemoglobin 36.6 pg (26-34); Mean Corpuscular Volume 110.6 fl (80-100); Platelet Count Result 112 k/mm3 (150-375); Red Blood Count 2.84 M/mm3 (4.2-5.4); Red Cell Distribution Width 15.1 % (11.5-14.5); White Blood Count 3.8 K/mm3 (4.5-10.0)
[2020-10-04] MEDS: ACETAMINOPHEN 325 MG TABLET 650 MG PO (05:21)
[2020-10-04 05:36] LABS: Anion Gap 3 mmol/L (8-16); Blood Urea Nitrogen 19 mg/dL (7-17); Calcium 9.1 mg/dL (8.4-10.2); Carbon Dioxide 30 mmol/L (22-30); Chloride 101 mmol/L (98-107); Estimated CRCL calculation 68 ml/min; Estimated Glomerular Filt Rate > 60; Glucose 217 mg/dL (65-105); Potassium 4.1 mmol/L (3.4-5.0); Sodium 134 mmol/L (137-145)
[2020-10-04 06:04] VITALS: BP 125/62; PULSE 84; RESP 14; TEMP 36.3; O2SAT 100
[2020-10-04 07:19] LABS: Glucose Point of Care 174 (65-105)
[2020-10-04 08:00] VITALS: BP 115/54; BP 134/66; BP 134/80; PULSE 101; PULSE 86; PULSE 94; PULSE 96
[2020-10-04] MEDS: FLUTICASONE PROPIONATE 0.05% NA SPR 16 GM BTL (*BKC) 2 SPRAY NASAL (08:14)
[2020-10-04] MEDS: PIOGLITAZONE HCL 45 MG TABLET PO (08:15)
[2020-10-04] MEDS: GLIMEPIRIDE 2 MG TABLET 4 MG PO (08:15)
[2020-10-04] MEDS: ATORVASTATIN 40 MG TABLET 80 MG PO (08:15)
[2020-10-04] MEDS: hydroCHLOROthiazide 12.5 MG CAPSULE PO (08:15)
[2020-10-04] MEDS: lisinopriL 20 MG TABLET PO (08:15)
[2020-10-04] MEDS: ASPIRIN 81 MG ENTERIC TABLET PO (08:16)
[2020-10-04] MEDS: MULTIVITAMINS THERAPEUTIC TAB (*BKC) 1 TABLET PO (08:16)
[2020-10-04] MEDS: CYANOCOBALAMIN 500 MCG TABLET PO (08:16)
[2020-10-04] MEDS: OMEGA 3 POLYUNSAT FATTY ACIDS 1 GM CAP PO (08:16)
[2020-10-04] MEDS: DOCUSATE SODIUM 100 MG CAPSULE PO (09:23)
[2020-10-04] MEDS: polyethylene glycoL 3350 17 GM POWD.PACK PO (09:24)
--- NOTE | 2020-10-04 10:28 | WPDNEUROPN ---
Progress Note: A&P Assessment and Plan (1) Macrocytic anemia: Code(s): D53.9 - Nutritional anemia, unspecified Status: Chronic (2) Dizziness: Code(s): R42 - Dizziness and giddiness Status: Acute Additional Plan diabetic with neuropathy and macrocytic anemia Review of Systems Review of Systems: All systems reviewed & are unremarkable except as noted in HPI and below Exam Narrative: Exam Narrative: examination reveals her to be awake alert cooperative in no obvious acute distress neck is supple heart regular lungs clear abdomen is soft neuro essentially unchanged Objective Data Vital Signs Vital Signs: Vital Signs - 24 hr 10/03/20 12:00 10/03/20 14:00 10/03/20 16:00 Temperature 36.0 C L Pulse Rate 87 95 87 Respiratory Rate 16 Blood Pressure 125/61 Pulse Oximetry 100 10/03/20 20:00 10/03/20 20:45 10/04/20 00:00 Temperature 36.2 C L Pulse Rate 121 H 95 92 Respiratory Rate 12 Blood Pressure 125/60 Pulse Oximetry 100 10/04/20 04:00 10/04/20 06:04 10/04/20 08:00 Temperature 36.3 C L Pulse Rate 87 84 101 H Respiratory Rate 14 Blood Pressure 125/62 134/80 Pulse Oximetry 100 Intake/Output Intake/Output: Intake & Output 10/01/20 10/02/20 10/03/20 10/04/20 23:59 23:59 23:59 23:59 Intake Total 1245 2120 240 Output Total 1700 1025 300 Balance -455 1095 -60 Meds/Results Medications: Active Medications Generic Name Dose Route Start Last Admin Trade Name Mayda PRN Reason Stop Dose Admin Acetaminophen 650 mg 10/01/20 18:04 10/04/20 05:21 Acetaminophen 325 Mg Tablet PO 650 mg Q4H PRN Administration Mild Pain (1-3) or Fever Aspirin 81 mg 10/02/20 09:05 10/04/20 08:16 Aspirin 81 Mg Enteric Tablet PO 81 mg QAM ALPHONSE Administration Atorvastatin Calcium 80 mg 10/02/20 09:00 10/04/20 08:15 Atorvastatin 40 Mg Tablet PO 80 mg DAILY ALPHONSE Administration Calcium Carbonate 500 mg 10/02/20 09:00 10/04/20 08:15 Calcium/Vitamin D 500 Mg Tablet PO 500 mg QAM ALPHONSE Administration Cyanocobalamin 500 mcg 10/02/20 09:00 10/04/20 08:16 Cyanocobalamin 500 Mcg Tablet PO 500 mcg QAM ALPHONSE Administration Dextrose 12.5 gm 10/02/20 00:18 Dextrose 50% 25 Gm/50 Ml Syringe IV PUSH PRN PRN Hypoglycemia Protocol Docusate Sodium 100 mg 10/04/20 09:00 10/04/20 09:23 Docusate Sodium 100 Mg Capsule PO 100 mg Q12HR ALPHONSE Administration Fish Oil 1 gm 10/02/20 09:00 10/04/20 08:16 [place] 3 Polyunsat Fatty Acids 1 Gm Cap PO 1 gm DAILY ALPHONSE Administration Fluticasone Propionate 2 spray 10/02/20 09:00 10/04/20 08:14 Fluticasone Propionate 0.05% Na Spr 16 Gm Btl (*Bkc) NASAL 2 spray DAILY ALPHONSE Administration Glimepiride 4 mg 10/02/20 08:00 10/04/20 08:15 Glimepiride 2 Mg Tablet PO 4 mg DAILY@0800 ALPHONSE Administration Glucagon 1 mg 10/02/20 00:18 Glucagon For Inj 1 Mg Vial IM PRN PRN Hypoglycemia Protocol Glucose 15 gm 10/02/20 00:18 Glucose Oral Gel 15 Gm Of Glucse In 37.5 Gm Tube PO PRN PRN Hypoglycemia Protocol Hydrochlorothiazide 12.5 mg 10/02/20 09:00 10/04/20 08:15 Hydrochlorothiazide 12.5 Mg Capsule PO 12.5 mg QAM ALPHONSE Administration Dextrose 1,000 mls @ 100 mls/hr 10/02/20 00:18 Dextrose 5% 1,000 Ml IVPB PRN PRN Hypoglycemia Protocol Insulin Aspart 3 - 6 units 10/02/20 08:00 10/04/20 07:17 Insulin Aspart (*Bkc) 100 Units/Ml SUB-Q Not Given [facility] Protocol Lisinopril 20 mg 10/02/20 09:00 10/04/20 08:15 Lisinopril 20 Mg Tablet PO 20 mg QAM ALPHONSE Administration Meclizine HCl 12.5 mg 10/02/20 00:16 10/03/20 10:51 Meclizine Hcl 12.5 Mg Tablet PO 12.5 mg QID PRN Administration Dizziness Multivitamins Therapeutic 1 tablet 10/02/20 09:00 11/09/20 08:16 Multivitamins Therapeutic Tab (*Bkc) PO 1 tablet DAILY ALPHONSE Administration Non-Formula
[2020-10-04 11:36] LABS: Glucose Point of Care 172 (65-105)
[2020-10-04 12:00] VITALS: PULSE 94
[2020-10-04] MEDS: HEPARIN SOD FLUSH 500 UNITS/5 ML SYRINGE IV PUSH (13:49)
--- NOTE | 2020-10-04 15:22 | PM.DS ---
DS: Admitting Diagnosis Admitting Diagnosis Admitting Diagnosis: dizziness, new cerebral infarct DS: Discharge Diagnosis Discharge Diagnosis (1) Dizziness: Code(s): R42 - Dizziness and giddiness Status: Acute Assessment and Plan: Patient complained of dizziness that occurred upon standing. This improved with meclizine, suggesting vertiginous nature. Echo performed with no evidence of valvular disease and no evidence of inta-atrial shunt. Carotid Dopplers showed <50% stenosis in right and left ICA. She was not orthostatic. TSH wnl. Dizziness resolved. She will continue prn meclizine as needed and will follow up with neurology to undergo EMG. Fall precautions discussed. (2) Focal infarction of brain: Code(s): I63.9 - Cerebral infarction, unspecified Status: Acute Assessment and Plan: Head CT showed age-indeterminate infarct in the right frontoparietal region which is new from December 2018. Follow up brain MRI showed small old infarct in right frontoparietal region. She did not appear to have any deficits. She will follow up with neurology as noted above. She was started on daily aspirin therapy. (3) Breast cancer metastasized to lung: Qualifiers: Laterality: right Qualified Code(s): C50.911 - Malignant neoplasm of unspecified site of right female breast; C78.00 - Secondary malignant neoplasm of unspecified lung Code(s): C50.919 - Malignant neoplasm of unspecified site of unspecified female breast; C78.00 - Secondary malignant neoplasm of unspecified lung Status: Chronic Assessment and Plan: She is established with Dr. Fitch and maintained on oral chemotherapy. She is s/p bilateral mastectomy. CXR on 10/01 showed improvement of pulmonary metastases. Continue oral chemo and follow up with oncology as scheduled. (4) Pancytopenia: Code(s): D61.818 - Other pancytopenia Status: Acute Assessment and Plan: Likely secondary to chemotherapy. Vital signs stable and no signs of blood loss. CBC monitored closely and remained consistent with baseline from review of prior labs. (5) Uncontrolled diabetes mellitus: Qualifiers: Diabetes mellitus type: type 2 Glycemic state: with hyperglycemia Qualified Code(s): E11.65 - Type 2 diabetes mellitus with hyperglycemia Code(s): E11.65 - Type 2 diabetes mellitus with hyperglycemia Status: Acute Assessment and Plan: Last A1c was 10.1 (08/18/20). Blood sugars monitored daily while inpatient and were elevated above target generally in the upper 180s with occasional readings in the upper 200s. She will continue her oral hypoglycemics. She currently has follow-up scheduled with her PCP for diabetes management and reports they have discussed starting insulin. I encouraged her to monitor her blood sugar 3 times per day and record readings for review by PCP. Diabetic diet was discussed. (6) HTN (hypertension): Qualifiers: Hypertension type: unspecified Qualified Code(s): I10 - Essential (primary) hypertension Code(s): I10 - Essential (primary) hypertension Status: Chronic Assessment and Plan: Blood pressure evaluated daily and were generally well controlled. Continue lisinopril and hydrochlorothiazide. (7) Chest tightness: Code(s): R07.89 - Other chest pain Status: Acute Assessment and Plan: Patient complained of chest tightness on 10/02 at rest which worsened with movement and cough. Pain was reproducible with palpation of chest wall and was alleviated with heating pad. She had 3 negative troponins. Stat EKG performed 10/02/20 at onset of discomfort and was unchanged from initial EKG. ACS not suspected. Suspect this is musculoskeletal in nature. We discussed supportive care. DS: Summary Hospital Course Reason for hospitalization: Dizziness Hospital Course: date of admission: 10/01/2020 date of discharge: 10/04
== END 2020-10-04 14:55 | disposition home or self-care (01) | DRG 65 ==
LOC: ANHED 18:58 → ANH3MED 18:59
PROVIDERS: Family Medicine; Physician Assistant; Admitting Provider Family Medicine; Emergency Provider Emergency Medicine; PCP Family Medicine; Visit Provider Family Medicine
DX: I63.9 Cerebral infarction, unspecified (principal); C78.00 Secondary malignant neoplasm of unspecified lung; E11.9 Type 2 diabetes mellitus without complications; C50.919 Malignant neoplasm of unspecified site of unspecified female breast; E11.65 Type 2 diabetes mellitus with hyperglycemia; I10 Essential (primary) hypertension; D53.9 Nutritional anemia, unspecified; D69.6 Thrombocytopenia, unspecified
CPT/HCPCS: 36415; 70450; 70553; 71046; 80048; 84443; 84484; 85025; 85027; 85610; 85730; 87040; 93005; 93306; 93880; 96375; 97110; 97163; 97166; 97535; 99285; A9270; A9577; G0378; J0131; J1815

== ENCOUNTER 2020-10-23 00:48 | Outpatient (CLI) | payer MEDICARE, MEDICAID, SELFPAY ==
[2020-10-23 18:32] LABS: SARS-CoV-2 RNA PCR Negative
== END 2020-10-23 00:49 | disposition home or self-care (01) ==
LOC: ANHCOVIDDT 00:48
PROVIDERS: PCP Family Medicine; Visit Provider Internal Medicine Gastroenterology
DX: Z01.812 Encounter for preprocedural laboratory examination (principal); Z20.828 Contact with and (suspected) exposure to other viral communicable diseases
CPT/HCPCS: 87635; C9803; U0003

== ENCOUNTER 2020-10-26 09:35 | Outpatient (CLI) | payer MEDICARE, MEDICAID, SELFPAY ==
[2020-10-26 19:16] LABS: SARS-CoV-2 RNA PCR Negative
== END 2020-10-26 09:36 | disposition home or self-care (01) ==
LOC: ANHCOVIDDT 09:36
PROVIDERS: PCP Family Medicine; Visit Provider Internal Medicine Gastroenterology
DX: Z01.818 Encounter for other preprocedural examination (principal); Z20.828 Contact with and (suspected) exposure to other viral communicable diseases
CPT/HCPCS: 87635; C9803; U0003

== ENCOUNTER 2020-10-28 00:39 | Day surgery (SDC) | payer MEDICARE, MEDICAID, SELFPAY ==
[2020-10-18 14:40] VITALS: BMI 35.0
[2020-10-28 13:56] VITALS: BP 157/75; PULSE 92; RESP 16; TEMP 36.4; O2SAT 100
--- NOTE | 2020-10-28 14:10 | WPDANESEPPF ---
Anes - Initial Pre Proc Eval Procedure: Operation Date: 10/28/20 15:30 Proposed Procedures p Screening Colonoscopy - Ramírez Rosenberg MD Date/Time: 10/28/20 14:10 Surgeon: Ramírez Rosenberg MD Pre Op Diagnosis: Neoplasm Screening Patient Data Age: 70 Gender: F Height: 5 ft 2 in Weight: 86.7 kg Last Vital Signs Temp 97.5 F L 10/28/20 13:56 Pulse 92 10/28/20 13:56 Resp 16 10/28/20 13:56 BP 157/75 H 10/28/20 13:56 Pulse Ox 100 10/28/20 13:56 Allergies Allergy/AdvReac Type Severity Reaction Status Date / Time Penicillins Allergy Intermediate Hives Verified 10/28/20 13:55 Home Medications Medication Instructions Recorded Confirmed Type calcium carbonate-vitamin D3 1 cap PO DAILY 09/11/19 10/18/20 History multivitamin 1 tablet PO DAILY 09/11/19 10/18/20 History capecitabine 500 mg tablet See Rx Instructions PO .COMPLEX 11/28/19 10/18/20 History tablet cyanocobalamin (vitamin B-12) 50 50 mcg PO DAILY 06/08/20 10/28/20 History mcg lozenges sitagliptin 100 mg tablet 100 mg PO QAM tablet 06/29/20 10/18/20 History pioglitazone 45 mg tablet 45 mg PO DAILY #30 tablet 09/08/20 10/18/20 Rx atorvastatin 80 mg PO DAILY 10/01/20 10/18/20 History fluticasone propionate 2 spray INTRANASAL DAILY 10/01/20 10/18/20 History hydrocodone-acetaminophen [[place]] 1 tablet PO Q6-8H PRN 10/01/20 10/18/20 History omega-3 fatty acids 1,000 mg 1,000 mg PO DAILY 10/01/20 10/18/20 History capsule aspirin 81 mg PO QAM #30 tablet 10/04/20 10/18/20 Rx clindamycin HCl 300 mg PO Q8H 10/18/20 10/18/20 History cyanocobalamin (vitamin B-12) 1,000 mcg PO DAILY 10/18/20 10/18/20 History [Vitamin B-12] elderberry fruit [Elderberry] 400 mg PO DAILY 10/18/20 10/18/20 History lisinopril-hydrochlorothiazide 1 tablet PO DAILY 10/18/20 10/18/20 History glimepiride 2 mg tablet 4 mg PO DAILY #60 tablet 10/27/20 Rx Patient hx anesthesia problems: none Family hx anesthesia problems: none 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 Reactive depression Sleep apnea, unspecified Surgical History Surgical History History of bilateral mastectomy History of section History of dilation and curettage History of eye surgery lt eye, due to clogged tear duct History of left knee replacement Family History Family History Mother Family history of diabetes mellitus in first degree relative Family history of type 2 diabetes mellitus Hypertension Sibling Family history of diabetes mellitus in first degree relative Family history of congenital heart disease Lung cancer Other Diabetes mellitus Family history of throat cancer Social History Social History Smoking packs per day: 0.5 Smoking cigarettes per day: 10.0 Years smoked: 8 Smoking pack-years: 4.00 Smoking status: Former smoker Second hand tobacco smoke exposure: No Smoking end date: 11/26/00 Additional smoking assessment comments: Smoked only as a teenager Alcohol intake: never Substance use: never Substance use type: does not use Living arrangements: alone Gender identity (if verbalized by the patient): Female Spiritual care concerns: No Anes - Eval Final PreProcedure Day of Procedure 10/28/20 14:10 Patient weight: obese Heart: regular rate and rhythm Lungs: clear to auscultation Airway: Mallampati scale class II Neurological: alert and oriented Last oral intake: >/= 8 hours ASA classification: III Emergent: no Anesthetic plan: proceed Anesthesia type and monit
[2020-10-28] MEDS: LACTATED RINGERS 1,000 ML 150 ML IV CONT (14:31)
[2020-10-28 14:40] LABS: Glucose Point of Care 180 (65-105)
--- NOTE | 2020-10-28 14:58 | PM.HPGS ---
History of Present Illness History of Present Illness Consent: Risks, benefits, and alternatives have been discussed and questions answered. Patient agrees to proceed with procedure. Chief complaint: Neoplasm Screening Narrative: Aparna Edwards is a 70 year old female here for first screening colonoscopy Review of Systems Constitutional: Constitutional: Denies headache(s) and Denies weakness Eyes: Eyes: Denies blurry vision ENT: Reports Normal hearing present, Denies headache(s) and Denies neck pain Cardiovascular: Cardiovascular: Denies chest pain and Denies dyspnea Respiratory: Respiratory: Denies dyspnea Gastrointestinal: Gastrointestinal: Reports no additional gastrointestinal complaints Genitourinary: Genitourinary: Denies dysuria Musculoskeletal: Musculoskeletal: Denies neck pain Integumentary/Breasts: Skin/Breast: Denies dry skin Neurologic: Reports Normal hearing present, Denies headache(s) and Denies weakness Psychiatric: Psychiatric: Denies anxiety Endocrine: Endocrine: Denies change in body appearance Hematologic/Lymphatic: Hematologic/Lymphatic: Denies easy bleeding Allergic/Immunologic: Allergic/Immunologic: Denies urticaria 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 Reactive depression Sleep apnea, unspecified Surgical History Surgical History History of bilateral mastectomy History of section History of dilation and curettage History of eye surgery lt eye, due to clogged tear duct History of left knee replacement Family History Family History Mother Family history of diabetes mellitus in first degree relative Family history of type 2 diabetes mellitus Hypertension Sibling Family history of diabetes mellitus in first degree relative Family history of congenital heart disease Lung cancer Other Diabetes mellitus Family history of throat cancer Social History Social History Smoking packs per day: 0.5 Smoking cigarettes per day: 10.0 Years smoked: 8 Smoking pack-years: 4.00 Smoking status: Former smoker Second hand tobacco smoke exposure: No Smoking end date: 11/26/00 Additional smoking assessment comments: Smoked only as a teenager Alcohol intake: never Substance use: never Substance use type: does not use Living arrangements: alone Gender identity (if verbalized by the patient): Female Spiritual care concerns: No Meds Home Medications and Allergies Home Medications Medication Instructions Recorded Confirmed Type calcium carbonate-vitamin D3 1 cap PO DAILY 09/11/19 10/18/20 History multivitamin 1 tablet PO DAILY 09/11/19 10/18/20 History capecitabine 500 mg tablet See Rx Instructions PO .COMPLEX 11/28/19 10/18/20 History tablet cyanocobalamin (vitamin B-12) 50 50 mcg PO DAILY 06/08/20 10/28/20 History mcg lozenges sitagliptin 100 mg tablet 100 mg PO QAM tablet 06/29/20 10/18/20 History pioglitazone 45 mg tablet 45 mg PO DAILY #30 tablet 09/08/20 10/18/20 Rx atorvastatin 80 mg PO DAILY 10/01/20 10/18/20 History fluticasone propionate 2 spray INTRANASAL DAILY 10/01/20 10/18/20 History hydrocodone-acetaminophen [[place]] 1 tablet PO Q6-8H PRN 10/01/20 10/18/20 History omega-3 fatty acids 1,000 mg 1,000 mg PO DAILY 10/01/20 10/18/20 History capsule aspirin 81 mg PO QAM #30 tablet 10/04/20 10/18/20 Rx clindamycin HCl 300 mg PO Q8H 10/18/20 10/18/20 History cyanocobalamin (vitamin B-12) 1,000 mcg PO DAILY 10/18/20 10/18/20 History [Vitamin B-12] elderberry fruit [Elderberry] 400 mg PO D
[2020-10-28 15:19] VITALS: BP 136/68; PULSE 87; RESP 22; O2SAT 100
[2020-10-28 15:29] VITALS: BP 153/84; PULSE 90; RESP 22; O2SAT 98
[2020-10-28] MEDS: CENTRAL LINE FLUSH 10 ML IV PUSH (15:38)
[2020-10-28 15:39] VITALS: BP 159/78; PULSE 90; RESP 23; O2SAT 100
[2020-10-28] MEDS: HEPARIN SOD FLUSH 500 UNITS/5 ML SYRINGE IV PUSH (15:39)
== END 2020-10-28 15:52 | disposition home or self-care (01) ==
PROVIDERS: PCP Family Medicine; Visit Provider Internal Medicine Gastroenterology
PROC: 0DJD8ZZ Inspection of Lower Intestinal Tract, Via Natural or Artificial Opening Endoscopic (ICD-10-PCS; CPT 45378; principal; 2020-10-28 15:30)
DX: Z12.11 Encounter for screening for malignant neoplasm of colon (principal); D12.3 Benign neoplasm of transverse colon; K64.8 Other hemorrhoids; K64.4 Residual hemorrhoidal skin tags; I10 Essential (primary) hypertension; E78.5 Hyperlipidemia, unspecified; G47.30 Sleep apnea, unspecified; E11.9 Type 2 diabetes mellitus without complications; Z85.3 Personal history of malignant neoplasm of breast; F32.9 Major depressive disorder, single episode, unspecified; G62.0 Drug-induced polyneuropathy; Z92.21 Personal history of antineoplastic chemotherapy; Z79.82 Long term (current) use of aspirin; Z87.891 Personal history of nicotine dependence; Z85.830 Personal history of malignant neoplasm of bone; E66.9 Obesity, unspecified; Z68.35 Body mass index [BMI] 35.0-35.9, adult
CPT/HCPCS: 45385; 88305; C9803; J2704; J7120; U0003

== ENCOUNTER 2020-12-29 14:47 | Outpatient (CLI) | payer MEDICARE, MEDICAID, SELFPAY ==
--- NOTE | ~2020-12-29 | XR_ITS ---
XR lumbar spine min 4V 12/29/2020 15:12 Indication: Low back pain Procedure: 5 views lumbar spine Comparison: No prior studies for comparison. Findings: Mild levocurvature of the thoracolumbar spine. There is disc narrowing and endplate degener ative change at L1-2. There is grade 1 degenerative spondylolisthesis at L4-5. There is multilevel fa cet hypertrophy. Impression: 1: Moderate lumbar spondylosis. Mild levoscoliosis. Reviewed, dictated and finalized at location A. RATION HAND Impression: 1: Moderate lumbar spondylosis. Mild levoscoliosis.
== END 2020-12-29 14:48 | disposition home or self-care (01) ==
LOC: ANHIMG 14:54
PROVIDERS: PCP Family Medicine; Visit Provider Nurse Practitioner
DX: M47.819 Spondylosis without myelopathy or radiculopathy, site unspecified (principal); M41.9 Scoliosis, unspecified
CPT/HCPCS: 72110

== ENCOUNTER 2020-12-31 06:43 | Emergency (ER) | payer MEDICARE, MEDICAID, SELFPAY ==
[2020-12-31] VITALS (16 sets, daily range): BP systolic 138–175; BP diastolic 75–94; PULSE 100–125; RESP 11–25; TEMP 35.9; O2SAT 99–100
--- NOTE | ~2020-12-31 | CT_ITS ---
EXAMINATION: CT lumbar spine wo con EXAM DATE: 12/31/2020 07:55 INDICATION: Sciatica, h/o metastatic breast cancer. TECHNIQUE: Spiral CT of the lumbar spine was performed without contrast. Axial, coronal and sagittal images were reviewed. The dose-length product (DLP) for this examination was 837.37 mGy-cm. The e xposure was tailored according to patient size (auto mA exposure control), and iterative reconstructi on (ASIR) was used as additional dose reduction technique. Correlation is made to CT abdomen pelvis . FINDINGS: There is diffusely mottled appearance to the L4 vertebral body consistent with metastatic d isease, probably minimal extraosseous extension posterior to this vertebral body, significant progres wendy compared to April. Smaller amount of similar appearance to the L3 vertebral body posteriorly. Mor e focal approximately 2 cm region in L5 which is probably also metastatic disease have developed comp ared to prior study. There is mild thoracolumbar levoscoliosis. Moderate to severe disc disease L-1-2, mild to moderate di sc disease at the other lumbar and lower thoracic levels. Upper portion of sacrum is unremarkable. Pa raspinal soft tissue is unremarkable. Level by level evaluation: T12-L1: There is a mild diffuse disc bulge. Facet arthropathy: Mild. Neural foraminal stenosis: No stenosis. Central canal stenosis: Minimal. L1-L2: There is a moderate to large diffuse disc bulge. Facet arthropathy: Mild to moderate. Neural foraminal stenosis: Moderate right, mild left. Central canal stenosis: Mild to moderate. L2-L3: There is a moderate diffuse disc bulge. Facet arthropathy: Moderate. Neural foraminal stenosis: No stenosis. Central canal stenosis: Mild. L3-L4: There is a moderate diffuse disc bulge. Facet arthropathy: Moderate to severe. Neural foraminal stenosis: Mild to moderate left, mild right. Central canal stenosis: Moderate. L4-L5: There is a moderate diffuse disc bulge. Facet arthropathy: Severe. Neural foraminal stenosis: Mild bilateral. Central canal stenosis: Moderate to severe. L5-S1: There is a mild to moderate diffuse disc bulge. Facet arthropathy: Moderate. Neural foraminal stenosis: Mild to moderate left, no right. Central canal stenosis: No stenosis. IMPRESSION: 1. L4-5 moderate to severe central canal stenosis, moderate at L3-4. 2. L1-to moderate to severe disc disease. 3. Osseous metastatic disease L4 greater than L3 and L5 vertebral bodies. Probable minimal extraosse ous extension posterior to the L4 vertebral body. Reviewed, dictated and finalized at location D. VISION SERVICER IMPRESSION: 1. L4-5 moderate to severe central canal stenosis, moderate at L3-4. 2. L1-to moderate to severe disc disease. 3. Osseous metastatic disease L4 greater than L3 and L5 vertebral bodies. Prob able minimal extraosseous extension posterior to the L4 vertebral body.
--- NOTE | 2020-12-31 07:04 | ED.LOWEXIN ---
HPI - Extremity Injury (Lower) General Chief Complaint: Extremity Injury, Lower Stated Complaint: Right leg pain/numbness Time Seen by Provider: 12/31/20 06:59 History of Present Illness HPI Narrative: 70 yo female w/ h/o DM, metastatic breast cancer presents to the ED for back pain. She has pain in the right lower back. Radiation through the buttock to the lateral right leg. Assocaited with tingling in the leg. This started more than 1 week ago. She saw her PCP and was started on flexeril. This has not been helping. She also has a recent prescription for [place]. She had negative x-ray and doppler done as an outpatient. No weakness, incontinence, saddle anesthesia Related Data Home Medications Medication Instructions Recorded Confirmed calcium carbonate-vitamin D3 1 cap PO DAILY 09/11/19 12/28/20 multivitamin 1 tablet PO DAILY 09/11/19 12/28/20 atorvastatin 80 mg PO DAILY 10/01/20 12/28/20 hydrocodone-acetaminophen [[place]] 1 tablet PO Q6-8H PRN 10/01/20 12/28/20 omega-3 fatty acids 1,000 mg 1,000 mg PO DAILY 10/01/20 12/28/20 capsule cyanocobalamin (vitamin B-12) 1,000 mcg PO DAILY 10/18/20 12/28/20 [Vitamin B-12] elderberry fruit [Elderberry] 400 mg PO DAILY 10/18/20 12/28/20 lisinopril-hydrochlorothiazide 1 tablet PO DAILY 10/18/20 12/28/20 capecitabine 500 mg tablet See Rx Instructions PO .COMPLEX 11/10/20 12/28/20 tablet fluticasone propionate 50 2 spray INTRANASAL DAILY PRN 11/10/20 12/28/20 mcg/actuation nasal spray,suspension biotin 800 mcg tablet 800 mcg PO DAILY 12/28/20 12/28/20 Allergies Allergy/AdvReac Type Severity Reaction Status Date / Time Penicillins Allergy Intermediate Hives Verified 12/31/20 06:50 Review of Systems Review of Systems: All systems reviewed & are unremarkable except as noted in HPI and below Constitutional: Constitutional: Denies fever(s) and Denies weakness Cardiovascular: Cardiovascular: Denies chest pain Respiratory: Respiratory: Denies dyspnea Gastrointestinal: Gastrointestinal: Denies abdominal pain and Denies nausea Genitourinary: Genitourinary: Denies hematuria and Denies dysuria Musculoskeletal: Musculoskeletal: Reports back pain Neurologic: Denies dizziness, Reports numbness and Denies weakness [facility] Past Medical History Medical History Arthritis Bone metastasis (~10/2018) Bronchitis Diabetes Dyspnea on exertion HTN (hypertension) Malignant neoplasm of unspecified site of right female breast Metastatic breast cancer Other hyperlipidemia 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 Reactive depression Sleep apnea, unspecified Surgical History Surgical History History of bilateral mastectomy History of section History of dilation and curettage History of eye surgery lt eye, due to clogged tear duct History of left knee replacement Family History Family History Mother Family history of diabetes mellitus in first degree relative Family history of type 2 diabetes mellitus Hypertension Sibling Family history of diabetes mellitus in first degree relative Family history of congenital heart disease Lung cancer Other Diabetes mellitus Family history of throat cancer Social History Social History Smoking packs per day: 0.5 Smoking cigarettes per day: 10.0 Years smoked: 8 Smoking pack-years: 4.00 Smoking status: Former smoker Second hand tobacco smoke exposure: No Smoking end date: 11/26/00 Additional smoking assessment comments: Smoked only as a teenager Alcohol intake: never Substance use: never Substance use type: does not use Gender identity (if verbalized by the patient): Female Spiritual care concerns: No Exam Const: General: no acute distress and alert Orientation/consciousness:
--- NOTE | 2020-12-31 07:48 | PC.NURSE ---
uable to draw labs due to pt taken to ct
[2020-12-31] MEDS: SODIUM CHLORIDE 0.9% IV 500 ML 999 ML IV CONT (08:26)
[2020-12-31] MEDS: diazePAM INJ (*CRX) 10 MG/2 ML SYRINGE 5 MG IM (08:26)
[2020-12-31 08:29] LABS: Basophils Percent Auto 0.2 % (0.2-1.2); Eosinophils Percent Auto 0.5 % (0-4.4); Hematocrit 34.4 % (37.0-47.0); Hemoglobin 11.9 g/dL (12.0-15.0); Immature Granulocyte Absolute 0.03 K/mm3 (0.00-0.031); Immature Granulocyte Percent A 0.5 % (0-0.5); Lymphocytes Absolute Auto 1.71 K/mm3 (0.9-3.2); Lymphocytes Percent Auto 26.6 % (18.3-44.2); Mean Corpuscular HGB Conc 34.6 g/dl (32-36); Mean Corpuscular Hemoglobin 37.2 pg (26-34); Mean Corpuscular Volume 107.5 fl (80-100); Mean Platelet Volume 9.9 fl (7.4-10.4); Monocytes Absolute Auto 0.7 K/mm3 (0.1-0.6); Monocytes Percent Auto 11.5 % (2.6-8.5); Neutrophils Absolute Auto 3.9 K/mm3 (1.3-6.7); Neutrophils Percent Auto 60.7 % (45.5-73.1); Platelet Count Result 119 k/mm3 (150-375); Red Cell Distribution Width 14.6 % (11.5-14.5); White Blood Count 6.4 K/mm3 (4.5-10.0)
[2020-12-31 08:40] LABS: INR 1.1; Prothrombin Time 14.4 Seconds (11.1-14.7)
[2020-12-31 08:42] LABS: Partial Thromboplastin Time 27.5 SECONDS (22.3-36.8)
[2020-12-31 08:46] LABS: Alanine Aminotransferase 25 U/L (4-35); Albumin Level 4.1 g/dL (3.5-5.1); Alkaline Phosphatase 107 U/L (38-126); Anion Gap 3 mmol/L (8-16); Aspartate Amino Transferase 41 U/L (14-36); Bilirubin,Total 0.6 mg/dL (0.2-1.3); Blood Urea Nitrogen 12 mg/dL (7-17); Calcium 9.7 mg/dL (8.4-10.2); Carbon Dioxide 29 mmol/L (22-30); Chloride 100 mmol/L (98-107); Estimated CRCL calculation 77 ml/min; Estimated Glomerular Filt Rate > 60; Glucose 166 mg/dL (65-105); Potassium 4.1 mmol/L (3.4-5.0); Sodium 132 mmol/L (137-145)
[2020-12-31 09:14] LABS: Add Urine Microscopic? YES; Appearance Urine Clear (Clear); Bilirubin Urine Negative (Negative); Blood Urine 1+ (Negative); Color Urine Straw (Yellow); Glucose Urine UA Negative (Negative); Ketones Urine Negative (Negative); Leukocyte Esterase Ur Negative LEU/UL (Negative); Nitrate Urine Negative (Negative); Protein Urine Negative (Negative); RBC Urine 0-2 /hpf (0-2); Specific Grav Ur 1.009 (1.001-1.035); Squamous Epithelial Cell Urine Rare /hpf (Few); Urobilinogen Urine Negative mg/dL (<2.0); WBC Urine 0-3 /hpf
[2020-12-31] MEDS: HYDROcodone/acetaminophen (*CRX) 5-325 MG TABLET 1 TAB PO (10:14)
[2020-12-31] MEDS: HEPARIN SOD FLUSH 500 UNITS/5 ML SYRINGE IV PUSH (10:31)
--- NOTE | 2020-12-31 10:34 | PC.NURSE ---
pt very upset that md has not been in to speak to her prior to d/c home. rn informed pt that she just spoke with md and repeated the info that md wanted passed on to pt. pt remains unhappy with rn explaination of d/c instructions. pt unhappy that no intervention or no further meds given to relieve pain. pt informed that md spoke to her pcp and pcp will contact pt later today with further info and plan of care. pt did not sign d/c instructions and left without waiting for md or wheelchair to exit.
== END 2020-12-31 10:34 | disposition home or self-care (01) ==
PROVIDERS: Emergency Provider Emergency Medicine; PCP Family Medicine
DX: M54.41 Lumbago with sciatica, right side (principal); M48.061 Spinal stenosis, lumbar region without neurogenic claudication; E11.9 Type 2 diabetes mellitus without complications; M19.90 Unspecified osteoarthritis, unspecified site; C79.51 Secondary malignant neoplasm of bone; Z85.3 Personal history of malignant neoplasm of breast; E78.49 Other hyperlipidemia; G47.30 Sleep apnea, unspecified
CPT/HCPCS: 36415; 72131; 80053; 81001; 85025; 85610; 85730; 96360; 96372; 99284; A9270; J3360; J7040

== ENCOUNTER 2021-01-13 22:43 | Emergency (ER) | payer MEDICARE, MEDICAID, SELFPAY ==
--- NOTE | ~2021-01-13 | XR_ITS ---
EXAMINATION: XR chest 1V portable EXAM DATE: 01/13/2021 23:45 INDICATION: Shortness of breath. TECHNIQUE: Portable AP frontal chest x-ray was obtained. Comparison is made to prior examination from 10/01/2020. FINDINGS: There is a left-sided IJ approach venous port with tip at the mid SVC. There is a 2 cm righ t midlung zone nodule, cm retrocardiac nodule, and a subcentimeter left apical nodule. No acute airs pace disease suspected. There is sclerosis to the left 6th rib anteriorly. No pneumothorax or pleural effusion. IMPRESSION: 1. No acute cardiopulmonary findings. 2. Pulmonary and bone metastases. Reviewed, dictated and finalized at location G. INE TANK OPERATOR
[2021-01-13 22:51] VITALS: BP 156/83; PULSE 106; RESP 32; TEMP 37.3; O2SAT 100
--- NOTE | 2021-01-13 23:06 | ECG_ITS ---
Measurements Intervals [place] Rate: 104 P: 52 NH: 167 QRS: 56 QRSD: 70 T: 54 QT: 347 QTc: 458 Interpretive Statements SINUS TACHYCARDIA POSSIBLE LEFT ATRIAL ENLARGEMENT POSSIBLE LEFT VENTRICULAR HYPERTROPHY BASELINE ARTIFACT- I, II, III, AVR, AVL, AVF, V1 BORDERLINE ECG Electronically Signed On 01-14-2021 7:07:13 POLISHING MACHINE TENDER by Gerardo Page D.O.
--- NOTE | 2021-01-13 23:10 | ED.GENADULT ---
HPI - General Adult General Chief complaint: Unspecified Stated complaint: Leg, hip, chest pain Time Seen by Provider: 01/13/21 22:59 History of Present Illness HPI narrative: Patient is a 70-year-old female who presents the emergency department with chief complaint of right sciatic pain right back pain and right-sided thoracic chest pain. Patient reports that she has history of metastatic breast cancer has been seen in the emergency department several times for pain control and is seeing her oncologist they attempted to place her on Percocet but the patient was having complications of nausea so they went down to hydrocodone. Patient has had continual nausea but has had no relief in her pain. Patient is scheduled to start chemo and radiation as she has metastatic lesions to her spine. Related Data Home Medications Medication Instructions Recorded Confirmed calcium carbonate-vitamin D3 1 cap PO DAILY 09/11/19 12/28/20 multivitamin 1 tablet PO DAILY 09/11/19 12/28/20 atorvastatin 80 mg PO DAILY 10/01/20 12/28/20 hydrocodone-acetaminophen [[place]] 1 tablet PO Q6-8H PRN 10/01/20 12/28/20 omega-3 fatty acids 1,000 mg 1,000 mg PO DAILY 10/01/20 12/28/20 capsule cyanocobalamin (vitamin B-12) 1,000 mcg PO DAILY 10/18/20 12/28/20 [Vitamin B-12] elderberry fruit [[place]lder[place]] 400 mg PO DAILY 10/18/20 12/28/20 lisinopril-hydrochlorothiazide 1 tablet PO DAILY 10/18/20 12/28/20 capecitabine 500 mg tablet See Rx Instructions PO .COMPLEX 11/10/20 12/28/20 tablet fluticasone propionate 50 2 spray INTRANASAL DAILY PRN 11/10/20 12/28/20 mcg/actuation nasal spray,suspension biotin 800 mcg tablet 800 mcg PO DAILY 12/28/20 12/28/20 clindamycin HCl 01/13/21 glimepiride mg 01/13/21 hydrocodone-acetaminophen tablet 01/13/21 hydroxyzine HCl 01/13/21 hydroxyzine HCl 01/13/21 01/13/21 meclizine mg 01/13/21 omeprazole 01/13/21 oxycodone 01/13/21 pioglitazone mg 01/13/21 sitagliptin [Januvia] mg 01/13/21 01/13/21 trazodone 01/13/21 Allergies Allergy/AdvReac Type Severity Reaction Status Date / Time Penicillins Allergy Intermediate Hives Verified 01/13/21 22:59 Review of Systems Review of Systems: Narrative: A 10 system review of systems was completed on the patient and is negative except for what is stated in the HPI. Nursing and ancillary documentation was reviewed. 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 Reactive depression Sleep apnea, unspecified Surgical History Surgical History History of bilateral mastectomy History of section History of dilation and curettage History of eye surgery lt eye, due to clogged tear duct History of left knee replacement Family History Family History Mother Family history of diabetes mellitus in first degree relative Family history of type 2 diabetes mellitus Hypertension Sibling Family history of diabetes mellitus in first degree relative Family history of congenital heart disease Lung cancer Other Diabetes mellitus Family history of throat cancer Social History Social History Smoking packs per day: 0.5 Smoking cigarettes per day: 10.0 Years smoked: 8 Smoking pack-years: 4.00 Smoking status: Former smoker Second hand tobacco smoke exposure: No Smoking end date: 11/26/00 Additional smoking assessment comments: Smoked only as a teenager Alcohol intake: never Substance use: never Substance use type: does not use Gender identity (if verbalized by th
[2021-01-13] MEDS: HYDROmorphone HCL INJ (*CRX) 1 MG/ML SYR IM (23:14)
--- NOTE | 2021-01-13 23:47 | PC.NURSE ---
concrete inspector and Dr Boyd aware that multiple attempts have been made without success to obtain IV/blood. Per have lab come and see what they can do and we will try to manage her pain by IM injections Patient does have a port but it is for Chemo. Patient and daughter made aware of plan-lab already called and will be down. Report received and care assumed by this RN from offgoing RN
[2021-01-14] VITALS: BP 159/69; PULSE 101; RESP 24; O2SAT 100
[2021-01-14 00:21] LABS: Basophils Percent Auto 0.5 % (0.2-1.2); Hematocrit 39.1 % (37.0-47.0); Hemoglobin 12.7 g/dL (12.0-15.0); Immature Granulocyte Absolute 0.01 K/mm3 (0.00-0.031); Immature Granulocyte Percent A 0.2 % (0-0.5); Lymphocytes Absolute Auto 1.61 K/mm3 (0.9-3.2); Lymphocytes Percent Auto 38.7 % (18.3-44.2); Mean Corpuscular HGB Conc 32.5 g/dl (32-36); Mean Corpuscular Hemoglobin 36.1 pg (26-34); Mean Corpuscular Volume 111.1 fl (80-100); Mean Platelet Volume 9.7 fl (7.4-10.4); Monocytes Absolute Auto 0.5 K/mm3 (0.1-0.6); Monocytes Percent Auto 11.3 % (2.6-8.5); Neutrophils Percent Auto 48.3 % (45.5-73.1); Platelet Count Result 139 k/mm3 (150-375); Red Blood Count 3.52 M/mm3 (4.2-5.4); White Blood Count 4.2 K/mm3 (4.5-10.0)
[2021-01-14 00:38] LABS: Alanine Aminotransferase 21 U/L (4-35); Alkaline Phosphatase 101 U/L (38-126); Anion Gap 9 mmol/L (8-16); Aspartate Amino Transferase 33 U/L (14-36); Bilirubin,Total 0.5 mg/dL (0.2-1.3); Blood Urea Nitrogen 12 mg/dL (7-17); Calcium 9.3 mg/dL (8.4-10.2); Carbon Dioxide 22 mmol/L (22-30); Chloride 105 mmol/L (98-107); Estimated CRCL calculation 93 ml/min; Estimated Glomerular Filt Rate > 60; Glucose 147 mg/dL (65-105); Potassium 3.8 mmol/L (3.4-5.0); Sodium 136 mmol/L (137-145)
[2021-01-14] MEDS: HYDROmorphone HCL INJ (*CRX) 1 MG/ML SYR IM (00:39)
[2021-01-14 00:46] LABS: Troponin I < 0.012 ng/mL (0.000-0.034)
[2021-01-14 01:00] VITALS: BP 177/94; PULSE 96; RESP 24; O2SAT 100
[2021-01-14] MEDS: ONDANSETRON HCL ODT 4 MG TABLET PO (01:20)
[2021-01-14] MEDS: diazePAM INJ (*CRX) 10 MG/2 ML SYRINGE 5 MG IM (01:20)
[2021-01-14 02:00] VITALS: BP 155/94; PULSE 93; RESP 21; O2SAT 100
[2021-01-14] MEDS: fentaNYL (*CRX) 25 MCG PATCH TRANSDERM (02:00)
[2021-01-14] MEDS: PROCHLORPERAZINE EDISYLATE 10 MG/2 ML VIAL IM (02:31)
== END 2021-01-14 02:50 | disposition home or self-care (01) ==
PROVIDERS: Emergency Provider Emergency Medicine; PCP Nurse Practitioner
DX: G89.3 Neoplasm related pain (acute) (chronic) (principal); C50.911 Malignant neoplasm of unspecified site of right female breast; M19.90 Unspecified osteoarthritis, unspecified site; E11.9 Type 2 diabetes mellitus without complications; I10 Essential (primary) hypertension; E78.5 Hyperlipidemia, unspecified
CPT/HCPCS: 36415; 71045; 80053; 84484; 85025; 93005; 96372; 99284; A9270; J0780; J1170; J3360

== ENCOUNTER 2021-04-24 08:05 | Emergency (ER) | payer MEDICARE, MEDICAID, SELFPAY ==
[2021-04-24] VITALS (21 sets, daily range): BP systolic 158–218; BP diastolic 79–104; PULSE 78–95; RESP 12–23; TEMP 36.3–36.8; O2SAT 95–100
--- NOTE | 2021-04-24 | ECG_ITS ---
Measurements Intervals [place] Rate: 86 P: 86 NM: 153 QRS: 82 QRSD: 76 T: 78 QT: 364 QTc: 435 Interpretive Statements SINUS RHYTHM BASELINE ARTIFACT- I, II, III, AVR, AVL, AVF, V1-V6 BORDERLINE ECG Electronically Signed On 04-24-2021 19:41:15 CDT by Gerardo Page D.O.
--- NOTE | ~2021-04-24 | XR_ITS ---
EXAMINATION: XR chest 2V DATE: 04/24/2021 08:32 INDICATION: Left chest pain. TECHNIQUE: Frontal and lateral views of the chest were obtained. COMPARISON: Chest single view 01/13/2021, chest CT 04/26/2020 FINDINGS: There are scattered nodules in the lungs, worst in right middle lobe. There is a small righ t pleural effusion. No pneumothorax. The heart size is normal. There is an expansile sclerotic lesion in left sixth rib. There is sclerosis of T6 vertebral body. There is a left internal jugular port wi th tip in superior vena cava. IMPRESSION: 1. Lung nodules and bone lesions, consistent with metastatic disease. 2. Small right pleural effusion. Reviewed, dictated and finalized at location A.
--- NOTE | ~2021-04-24 | CT_ITS ---
EXAMINATION: CTA chest PE protocol DATE: 04/24/2021 10:37 INDICATION: Left chest pain. TECHNIQUE: Computed tomography angiography (CTA) of the chest was performed with 100 mL Omnipaque-350 intravenous contrast timed to evaluate the pulmonary arteries. Coronal maximum intensity projection 3D-reconstructions were created by the technologist. Automated exposure control and iterative reconst ruction technique were employed. The dose-length product was 473.33 mGy-cm. COMPARISON: Chest CT 04/26/2020 FINDINGS: There is a 4.0 x 2.0 cm mass in right middle lobe, worsened from 2.2 x 1.3 cm on 04/26/2020. There are greater than 20 scattered nodules in the lungs with interval worsening. There is mild atele ctasis bilaterally. There is mild scarring at right lung apex. There is a small right pleural effusio n. There is mediastinal and left supraclavicular lymphadenopathy. The heart size is normal. No perica rdial effusion. There is a gallstone in the gallbladder. There is no pulmonary embolus. There are mul tiple scattered sclerotic lesions of bone including many of the vertebra, some of the ribs, and the s ternum. IMPRESSION: 1. No pulmonary embolus. 2. Pulmonary mass and nodules, mediastinal and left supraclavicular lymphadenopathy, and bone lesions with worsening from 04/26/2020, consistent with metastatic disease. 3. Small right pleural effusion. Reviewed, dictated and finalized at location A. IMPRESSION: 1. No pulmonary embolus. 2. Pulmonary mass and nodules, mediastinal and left supraclavicular lymphadenop athy, and bone lesions with worsening from 04/26/2020, consistent with metastatic disease. 3. Small right pleural effusion.
[2021-04-24 08:32] LABS: Hematocrit 29.6 % (37.0-47.0); Hemoglobin 9.8 g/dL (12.0-15.0); Immature Platelet Fraction Pct 9.5 % (0.9-11.2); Mean Corpuscular HGB Conc 33.1 g/dl (32-36); Mean Corpuscular Hemoglobin 33.9 pg (26-34); Mean Corpuscular Volume 102.4 fl (80-100); Mean Platelet Volume 12.4 fl (7.4-10.4); Platelet Count Result 68 k/mm3 (150-375); Red Blood Count 2.89 M/mm3 (4.2-5.4); Red Cell Distribution Width 16.6 % (11.5-14.5); White Blood Count 12.8 K/mm3 (4.5-10.0)
[2021-04-24 08:37] LABS: Band Neutrophils Percent 10 % (0-6); Lymphocytes Absolute Manual 1.79 K/mm3 (1.1-4.5); Monocytes Absolute Manual 0.89 K/mm3 (0.1-0.90); Monocytes Percent Manual 7 % (3-9); Neutrophils Absolute Manual 10.11 K/mm3 (1.7-7.2); Neutrophils Percent Manual 69 % (46-73); Nucleated Red Blood Cells 3 %; Platelet Estimate Decreased (Adequate); Total Cells Counted 100
[2021-04-24 08:38] LABS: Macrocytosis 1+ (NORMAL); Polychromasia 1+ (NORMAL); Stomatocytes 2+ (NORMAL)
[2021-04-24 08:40] LABS: Alanine Aminotransferase 41 U/L (4-35); Albumin Level 3.5 g/dL (3.5-5.1); Alkaline Phosphatase 159 U/L (38-126); Aspartate Amino Transferase 34 U/L (14-36); Bilirubin,Total 0.4 mg/dL (0.2-1.3)
[2021-04-24 08:42] LABS: Anion Gap 8 mmol/L (8-16); Blood Urea Nitrogen 11 mg/dL (7-17); Calcium 9.4 mg/dL (8.4-10.2); Carbon Dioxide 25 mmol/L (22-30); Chloride 99 mmol/L (98-107); Estimated Glomerular Filt Rate > 60; Glucose 373 mg/dL (65-105); Potassium 4.1 mmol/L (3.4-5.0); Sodium 132 mmol/L (137-145)
[2021-04-24 08:45] LABS: INR 1.1
[2021-04-24 08:47] LABS: Partial Thromboplastin Time 29.8 SECONDS (22.3-36.8)
--- NOTE | 2021-04-24 08:47 | ED.CHESTPAIN ---
HPI - Chest Pain General Chief Complaint: Chest Pain Stated Complaint: cp Time Seen by Provider: 04/24/21 08:13 Source: patient, family, EMS and RN notes reviewed Mode of arrival: EMS Limitations: no limitations History of Present Illness HPI narrative: 70 years old -Burm[place] female presents with left chest sharp stabbing pain started last night, positional, worse with breathing. Patient denies any recent new physical activities. History of breast cancer with lung metastasis, bilateral mastectomy, left Port-A-Cath for chemotherapy, patient been over radiation months ago. Patient denies any fever, chills, nausea, vomiting, shortness of breath. Related Data Home Medications Medication Instructions Recorded Confirmed calcium carbonate-vitamin D3 1 cap PO DAILY 09/11/19 04/20/21 multivitamin 1 tablet PO DAILY 09/11/19 04/20/21 atorvastatin 80 mg PO DAILY 10/01/20 04/20/21 omega-3 fatty acids 1,000 mg 1,000 mg PO DAILY 10/01/20 04/20/21 capsule cyanocobalamin (vitamin B-12) 1,000 mcg PO DAILY 10/18/20 04/20/21 [Vitamin B-12] elderberry fruit [Elderberry] 400 mg PO DAILY 10/18/20 04/20/21 fluticasone propionate 50 2 spray INTRANASAL DAILY PRN 11/10/20 04/20/21 mcg/actuation nasal spray,suspension hydrocodone 10 mg-acetaminophen 1 tablet PO Q6H PRN tablet 02/18/21 04/20/21 325 mg tablet Allergies Allergy/AdvReac Type Severity Reaction Status Date / Time Penicillins Allergy Intermediate Hives Verified 01/13/21 22:59 Review of Systems Review of Systems: Narrative: CONSTITUTIONAL: Denies fever, chills, or sweats. EYES: Denies visual changes, redness, or discharge. ENT: Denies rhinorrhea, congestion, sore throat, or otalgia. CARDIOVASCULAR: Denies chest pain, palpitations, or edema. RESPIRATORY: Denies cough or dyspnea. GASTROINTESTINAL: Denies abdominal pain, nausea, vomiting, or diarrhea. GENITOURINARY: Denies dysuria or hematuria. SKIN: Denies rash or itching. MUSCULOSKELETAL: Denies back pain, joint pain, or myalgia. NEUROLOGIC: Denies headache, numbness, or weakness. PSYCHIATRIC: Denies anxiety or depression. [facility] Past Medical History Medical History Arthritis Bone metastasis (~10/2018) Diabetes Dyspnea on exertion Focal infarction of brain GERD (gastroesophageal reflux disease) HTN (hypertension) Metastatic breast cancer Other hyperlipidemia Pancytopenia 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 Reactive depression Sleep apnea, unspecified Thrombocytopenia Surgical History Surgical History History of bilateral breast reduction surgery History of bilateral mastectomy History of section History of dilation and curettage History of eye surgery lt eye, due to clogged tear duct History of left knee replacement Family History Family History Mother Family history of diabetes mellitus in first degree relative Family history of type 2 diabetes mellitus Hypertension Sibling Family history of diabetes mellitus in first degree relative Family history of congenital heart disease Lung cancer Other Diabetes mellitus Family history of throat cancer Social History Social History Smoking packs per day: 0.5 Smoking cigarettes per day: 10.0 Years smoked: 2 Smoking pack-years: 1.00 Smoking status: Former smoker Tobacco type: cigarettes Second hand tobacco smoke exposure: No Smoking end date: 11/26/00 Additional smoking assessment comments: Smoked only as a teenager Alcohol intake: never Substance use: never Substance use type: does not use Gender identity (if verbalized by the patient): Female Spiritual care concerns: No Exam Narrative: Exam Narrative: General appearance: Well-developed, well-nourished, in pain Skin: Normal color Head: Normocephalic
[2021-04-24 08:52] LABS: Troponin I < 0.012 ng/mL (0.000-0.034)
[2021-04-24 08:54] LABS: D Dimer 0.58 ug/mL (<0.48)
[2021-04-24] MEDS: HYDROmorphone HCL INJ (*CRX) 1 MG/ML SYR 0.5 MG IV PUSH ×3 (09:00→13:25)
[2021-04-24] MEDS: ONDANSETRON INJ 4 MG/2 ML VIAL IV PUSH (09:00)
[2021-04-24 11:42] LABS: Troponin I < 0.012 ng/mL (0.000-0.034)
[2021-04-24] MEDS: PROCHLORPERAZINE EDISYLATE 10 MG/2 ML VIAL IV PUSH (13:01)
[2021-04-24] MEDS: HEPARIN SOD FLUSH 500 UNITS/5 ML SYRINGE IV PUSH (14:11)
--- NOTE | 2021-04-24 14:20 | PC.NURSE ---
Patient assisted to get dressed and is waiting for family member to arrive for ride home.
== END 2021-04-24 14:15 | disposition home or self-care (01) ==
PROVIDERS: Emergency Provider Emergency Medicine; PCP Family Medicine
DX: C79.51 Secondary malignant neoplasm of bone (principal); C78.00 Secondary malignant neoplasm of unspecified lung; C50.919 Malignant neoplasm of unspecified site of unspecified female breast; M19.90 Unspecified osteoarthritis, unspecified site; E11.9 Type 2 diabetes mellitus without complications; I10 Essential (primary) hypertension; K21.9 Gastro-esophageal reflux disease without esophagitis; E78.49 Other hyperlipidemia; G47.30 Sleep apnea, unspecified; Z90.13 Acquired absence of bilateral breasts and nipples; Z96.652 Presence of left artificial knee joint; Z87.891 Personal history of nicotine dependence; Z79.899 Other long term (current) drug therapy; Z79.4 Long term (current) use of insulin; Z79.82 Long term (current) use of aspirin
CPT/HCPCS: 36415; 71046; 71275; 80048; 80076; 84484; 85025; 85055; 85380; 85610; 85730; 93005; 96374; 96375; 96376; 99284; J0780; J1170; J2405; Q9967

== ENCOUNTER 2021-09-26 13:14 | Outpatient (CLI) | payer MEDICARE, MEDICAID, SELFPAY ==
--- NOTE | ~2021-09-26 | MR_ITS ---
EXAMINATION: MR brain IAC wo/w con EXAM DATE: 09/26/2021 14:40 INDICATION: C79.31 - Secondary malignant neoplasm of brain TECHNIQUE: Multi-sequential, multiplanar MR images of the brain, brainstem, internal auditory canals were obtained without contrast. Whole brain sagittal T1, axial diffusion, gradient echo (T2*), T1, T 2, FLAIR sequences obtained. High resolution coronal 3-D FIESTA, coronal T1 FSE, axial T1 FSPGR of t he internal auditory canals. Patient was then injected with 13 cc Multihance contrast intravenously. Postcontrast axial and coronal T1 weighted whole brain, axial and coronal high resolution T1 IAC seq uences obtained. Comparison is made to prior examination from 10/01/2020. FINDINGS: No evidence of mastoid or middle ear opacification. The 7th/8th cranial nerve complexes a re symmetric, normal in course and caliber. No cerebellopontine angle masses. Posterior fossa unrem arkable. There is less robust distal ICA flow related signal intensity compared to the contralateral side. The re is small old right frontoparietal lobe infarction. There is mild microangiopathy and cerebral atro phy. No extra-axial collections, acute intracranial hemorrhage or infarction, brain mass or obstructi ve hydrocephalus. There are no areas of abnormal enhancement on the post contrast images. IMPRESSION: 1. Less robust right ICA flow related signal; consider carotid ultrasound. 2. Small old right frontoparietal lobe infarction. 3. Mild age-related findings. Reviewed, dictated and finalized at location A.
[2021-09-26 13:51] LABS: Estimated Glomerular Filt Rate > 60
== END 2021-09-26 13:15 | disposition home or self-care (01) ==
LOC: ANHIMG 13:19
PROVIDERS: PCP Family Medicine; Visit Provider Radiology Radiation Oncology
DX: C79.31 Secondary malignant neoplasm of brain (principal)
CPT/HCPCS: 70553; A9577

== ENCOUNTER 2021-11-03 11:52 | Outpatient (RCR) | payer MEDICARE, MEDICAID, SELFPAY ==
[2021-10-06 13:40] LABS: Basophils Percent Auto 0.3 % (0.2-1.2); Hematocrit 32.9 % (37.0-47.0); Hemoglobin 10.7 g/dL (12.0-15.0); Immature Granulocyte Absolute 0.02 K/mm3 (0.00-0.031); Immature Granulocyte Percent A 0.3 % (0-0.5); Lymphocytes Absolute Auto 0.86 K/mm3 (0.9-3.2); Lymphocytes Percent Auto 14.6 % (18.3-44.2); Mean Corpuscular HGB Conc 32.5 g/dl (32-36); Mean Corpuscular Hemoglobin 31.7 pg (26-34); Mean Corpuscular Volume 97.3 fl (80-100); Mean Platelet Volume 9.2 fl (7.4-10.4); Monocytes Absolute Auto 0.5 K/mm3 (0.1-0.6); Neutrophils Absolute Auto 4.5 K/mm3 (1.3-6.7); Neutrophils Percent Auto 75.8 % (45.5-73.1); Platelet Count Result 196 k/mm3 (150-375); Red Blood Count 3.38 M/mm3 (4.2-5.4); White Blood Count 5.9 K/mm3 (4.5-10.0)
[2021-10-06 14:00] LABS: Alanine Aminotransferase 17 U/L (4-35); Albumin Level 3.8 g/dL (3.5-5.1); Alkaline Phosphatase 78 U/L (38-126); Anion Gap 6 mmol/L (8-16); Aspartate Amino Transferase 35 U/L (14-36); Bilirubin,Total 0.5 mg/dL (0.2-1.3); Blood Urea Nitrogen 14 mg/dL (7-17); Calcium 9.2 mg/dL (8.4-10.2); Carbon Dioxide 25 mmol/L (22-30); Chloride 107 mmol/L (98-107); Estimated Glomerular Filt Rate > 60; Glucose 277 mg/dL (65-110); Magnesium 2.2 mg/dL (1.6-2.3); Potassium 4.1 mmol/L (3.4-5.0); Sodium 138 mmol/L (137-145)
[2021-11-03 12:26] LABS: Basophils Percent Auto 0.5 % (0.2-1.2); Eosinophils Percent Auto 0.5 % (0-4.4); Hematocrit 31.5 % (37.0-47.0); Hemoglobin 10.2 g/dL (12.0-15.0); Immature Granulocyte Absolute 0.04 K/mm3 (0.00-0.031); Immature Granulocyte Percent A 0.6 % (0-0.5); Lymphocytes Absolute Auto 0.96 K/mm3 (0.9-3.2); Mean Corpuscular HGB Conc 32.4 g/dl (32-36); Mean Corpuscular Hemoglobin 31.4 pg (26-34); Mean Corpuscular Volume 96.9 fl (80-100); Monocytes Absolute Auto 0.7 K/mm3 (0.1-0.6); Monocytes Percent Auto 10.2 % (2.6-8.5); Neutrophils Absolute Auto 4.7 K/mm3 (1.3-6.7); Neutrophils Percent Auto 73.2 % (45.5-73.1); Platelet Count Result 242 k/mm3 (150-375); Red Blood Count 3.25 M/mm3 (4.2-5.4); Red Cell Distribution Width 16.9 % (11.5-14.5); White Blood Count 6.4 K/mm3 (4.5-10.0)
[2021-11-03 12:46] LABS: Alanine Aminotransferase 15 U/L (4-35); Albumin Level 3.9 g/dL (3.5-5.1); Alkaline Phosphatase 110 U/L (38-126); Anion Gap 8 mmol/L (8-16); Aspartate Amino Transferase 44 U/L (14-36); Bilirubin,Total 0.6 mg/dL (0.2-1.3); Blood Urea Nitrogen 13 mg/dL (7-17); Calcium 8.9 mg/dL (8.4-10.2); Carbon Dioxide 22 mmol/L (22-30); Chloride 105 mmol/L (98-107); Estimated Glomerular Filt Rate > 60; Glucose 158 mg/dL (65-110); Magnesium 2.2 mg/dL (1.6-2.3); Potassium 3.8 mmol/L (3.4-5.0); Sodium 135 mmol/L (137-145)
== END 2022-01-04 23:59 | disposition home or self-care (01) ==
LOC: ANHLAB 11:52
PROVIDERS: PCP Family Medicine; Visit Provider Internal Medicine
DX: C50.111 Malignant neoplasm of central portion of right female breast (principal); C78.00 Secondary malignant neoplasm of unspecified lung; Z17.0 Estrogen receptor positive status [ER+]; Z11.59 Encounter for screening for other viral diseases; T45.1X5D Adverse effect of antineoplastic and immunosuppressive drugs, subsequent encounter
CPT/HCPCS: 36415; 36592; 80053; 83735; 85025

== ENCOUNTER 2021-11-08 21:45 | Emergency (ER) | payer MEDICARE, BC, SELFPAY ==
[2021-11-08] VITALS (13 sets, daily range): BP systolic 135–168; BP diastolic 70–91; PULSE 94–108; RESP 13–25; TEMP 36.8; O2SAT 97–100
--- NOTE | ~2021-11-08 | CT_ITS ---
EXAMINATION: CT brain wo con INDICATION: Confusion and increasing weakness COMPARISON: 10/01/2020 TECHNIQUE: Standard unenhanced head CT. The dose-length product (DLP) was 605.33 mGy-cm. The mA was a djusted according to patient size. Iterative reconstruction technique was employed. FINDINGS: There is no acute intraparenchymal hemorrhage. No evidence of mass lesion. No evidence of a cute infarction. There is an old infarct in the right frontoparietal region. There is mild periventri cular and subcortical hypodensity probably related to small vessel ischemic disease. There is mild pr ominence of the sulci and ventricles related to cerebral atrophy. Intracranial calcified cerebral ath erosclerosis is noted. There are no extra-axial collections. There is no mass effect or midline shift . The orbits and soft tissues are unremarkable. There is complete opacification of the right sphenoid sinus. Mild mucosal thickening is noted in the ethmoidal air cells. IMPRESSION: 1. Old right frontoparietal region infarct without acute intracranial abnormality. 2. Age related findings. Reviewed, dictated and finalized at location A. O MANAGER IMPRESSION: 1. Old right frontoparietal region infarct without acute intracranial abnormali ty. 2. Age related findings.
--- NOTE | ~2021-11-08 | CT_ITS ---
EXAMINATION: CTA chest PE abdomen pel DATE: 11/09/2021 00:49 INDICATION: Metastatic breast cancer, confusion TECHNIQUE: Computed tomography angiography (CTA) of the chest was performed with 100 mL Omnipaque-350 intravenous contrast timed to evaluate the pulmonary arteries. Subsequent postcontrast images of the abdomen and pelvis are obtained. Coronal maximum intensity projection 3D-reconstructions were create d by the technologist. The dose-length product (DLP) was 500.25 mGy-cm. Automated exposure control an d iterative reconstruction technique were employed. COMPARISON: 04/24/2021, 04/26/2020 FINDINGS: CTA CHEST: The pulmonary arteries are well-opacified. No pulmonary embolism is identified. There are multiple pulmonary nodules scattered throughout the lungs and a mass of the right middle lobe. Some a re stable and some demonstrate increase in size. There is a small right pleural effusion. No pneumoth orax is identified. The heart size is normal. Mediastinal and left supraclavicular lymphadenopathy ar e again noted. A left subclavian Port-A-Cath ends with its tip in the distal superior vena cava. Ther e are widespread sclerotic osseous metastases involving the spine, sternum, and several ribs. ABDOMEN/PELVIS CT: There are multiple new ill-defined liver masses. The largest are seen in the liver segment Ruby, liver segment VIII, and liver segments V and . The largest involving segments V and V I measures up to 9.5 cm. A stone is present in the nondistended gallbladder. The spleen, pancreas, an d adrenal glands are normal. Cysts of the kidneys measure up to 10 mm on the right. No pathologically enlarged abdominal or pelvic lymph nodes are identified. There is no free intraperitoneal gas or meredith dence of bowel obstruction. There are sclerotic osseous metastasis of the lumbar spine, right sacrum, and left acetabulum. IMPRESSION: 1. No pulmonary embolus. 2. Right middle lobe mass and multiple pulmonary nodules, some of which demonstrate increase in size, consistent with metastatic disease. 3. Multiple new liver masses, consistent with metastatic disease. 4. Widespread osseous metastatic disease. Reviewed, dictated and finalized at location A. OWS SERVER SUPPORT TECHNICIAN IMPRESSION: 1. No pulmonary embolus. 2. Right middle lobe mass and multiple pulmonary nodules, some of which demonst rate increase in size, consistent with metastatic disease. 3. Multiple new liver masses, consistent with metastatic disease. 4. Widespread osseous metastatic disease.
--- NOTE | 2021-11-08 22:10 | ECG_ITS ---
Measurements Intervals [place] Rate: 98 P: 57 NV: 139 QRS: 48 QRSD: 73 T: 67 QT: 339 QTc: 433 Interpretive Statements SINUS RHYTHM BASELINE ARTIFACT- II, III, AVR, AVF, V1-V6 NORMAL ECG Electronically Signed On 11-09-2021 6:17:06 MOTO MIX OPERATOR by Gerardo Page D.O.
[2021-11-08] MEDS: SODIUM CHLORIDE 0.9% IV 1,000 ML 999 ML IV CONT (23:27)
[2021-11-08 23:36] LABS: Basophils Percent Auto 0.3 % (0.2-1.2); Eosinophils Absolute Auto 0.1 K/mm3 (0-0.3); Eosinophils Percent Auto 0.6 % (0-4.4); Hematocrit 30.3 % (37.0-47.0); Hemoglobin 9.5 g/dL (12.0-15.0); Immature Granulocyte Absolute 0.04 K/mm3 (0.00-0.031); Immature Granulocyte Percent A 0.5 % (0-0.5); Lymphocytes Absolute Auto 0.81 K/mm3 (0.9-3.2); Lymphocytes Percent Auto 9.4 % (18.3-44.2); Mean Corpuscular HGB Conc 31.4 g/dl (32-36); Mean Corpuscular Hemoglobin 31.5 pg (26-34); Mean Corpuscular Volume 100.3 fl (80-100); Monocytes Absolute Auto 0.9 K/mm3 (0.1-0.6); Monocytes Percent Auto 9.9 % (2.6-8.5); Neutrophils Absolute Auto 6.8 K/mm3 (1.3-6.7); Neutrophils Percent Auto 79.3 % (45.5-73.1); Platelet Count Result 225 k/mm3 (150-375); Red Blood Count 3.02 M/mm3 (4.2-5.4); Red Cell Distribution Width 16.6 % (11.5-14.5); White Blood Count 8.6 K/mm3 (4.5-10.0)
[2021-11-08 23:45] LABS: Alanine Aminotransferase 13 U/L (4-35); Albumin Level 3.5 g/dL (3.5-5.1); Alkaline Phosphatase 107 U/L (38-126); Anion Gap 9 mmol/L (8-16); Aspartate Amino Transferase 42 U/L (14-36); Bilirubin,Total 0.6 mg/dL (0.2-1.3); Blood Urea Nitrogen 14 mg/dL (7-17); Calcium 8.8 mg/dL (8.4-10.2); Carbon Dioxide 23 mmol/L (22-30); Chloride 108 mmol/L (98-107); Estimated CRCL calculation 54 ml/min; Estimated Glomerular Filt Rate > 60; Glucose 189 mg/dL (65-110); Lipase 20 U/L (23-300); Potassium 4.2 mmol/L (3.4-5.0); Sodium 140 mmol/L (137-145)
[2021-11-08 23:46] LABS: Lactic Acid Reflex 0.8 mmol/L (0.7-2.1)
[2021-11-09] VITALS (19 sets, daily range): BP systolic 138–174; BP diastolic 69–111; PULSE 92–117; RESP 11–26; O2SAT 95–100
[2021-11-09 00:38] LABS: Add Urine Microscopic? YES; Appearance Urine Cloudy (Clear); Bacteria Urine Trace /hpf; Bilirubin Urine Negative (Negative); Blood Urine Negative (Negative); Color Urine Amber (Yellow); Glucose Urine UA 1+ mg/dL (Negative); Ketones Urine Trace mg/dL (Negative); Leukocyte Esterase Ur Negative LEU/UL (Negative); Mucus Urine Heavy /lpf; Nitrate Urine Negative (Negative); Protein Urine 2+ mg/dL (Negative); RBC Urine 0-2 /hpf (0-2); Specific Grav Ur 1.025 (1.001-1.035); Squamous Epithelial Cell Urine Moderate /hpf (Few)
--- NOTE | 2021-11-09 00:49 | ED.WEAKNESS ---
HPI - Weakness General Chief complaint: Weakness Stated complaint: lethargy Time Seen by Provider: 11/08/21 21:59 Source: family and old records reviewed History of Present Illness HPI Narrative: Patient is brought in for weakness. Patient has metastatic breast cancer had chemotherapy 3 weeks ago supposed to reinitiate it on Sunday however she is too weak so she received fluids instead and she was monitored over the weekend by family. Her weakness appeared to be getting worse so she went to [facility] emergency room on Sunday where she had imaging and labs. Per family work-up was notable for worsening metastatic disease they contacted their oncologist on Sunday and patient is scheduled follow-up with them Sunday. Today patient had increase in her weakness and was altered all day. Family reports she is normally able to converse confusion or deficits today she has not been able to do so they called the ambulance and she was brought to the ER for evaluation. Family is reported multiple falls over the weekend which patient refused to be evaluated for family reports she has had a decreased appetite over the weekend as well. Patient's only complaint is intermittent abdominal pain patient unable to further elaborate on her symptoms. Related Data Home Medications Medication Instructions Recorded Confirmed calcium carbonate-vitamin D3 1 cap PO DAILY 09/11/19 10/04/21 cyanocobalamin (vitamin B-12) 1,000 mcg PO DAILY 10/18/20 10/04/21 [Vitamin B-12] fluticasone propionate 50 2 spray INTRANASAL DAILY PRN 11/10/20 10/04/21 mcg/actuation nasal spray,suspension hydrocodone 10 mg-acetaminophen 1 tablet PO Q6H PRN tablet 02/18/21 10/04/21 325 mg tablet insulin NPH-regular hum semi-syn 45 ml SUBCUT BID 08/29/21 10/04/21 100 unit/mL (70-30) subcutaneous soln prochlorperazine maleate 10 mg 10 mg PO Q6H PRN 08/29/21 10/04/21 tablet empagliflozin [Jardiance] 25 mg PO DAILY 10/04/21 10/04/21 glipizide 5 mg PO BID 10/04/21 10/04/21 mirtazapine 15 mg PO HS 10/04/21 10/04/21 prochlorperazine maleate 10 mg PO Q4-6H PRN 10/04/21 10/04/21 [Compazine] Allergies Allergy/AdvReac Type Severity Reaction Status Date / Time Penicillins Allergy Intermediate Hives Verified 11/08/21 22:06 Review of Systems Review of Systems: ROS unobtainable: Yes unobtainable due to mental status PMFSH Past Medical History Medical History Arthritis Breast cancer metastasized to lung Diabetes Dyspnea on exertion Focal infarction of brain GERD (gastroesophageal reflux disease) Other hyperlipidemia Pancytopenia 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 Reactive depression Sleep apnea, unspecified Thrombocytopenia Surgical History Surgical History History of bilateral breast reduction surgery History of bilateral mastectomy History of section History of dilation and curettage History of eye surgery lt eye, due to clogged tear duct History of left knee replacement Family History Family History Mother Family history of diabetes mellitus in first degree relative Family history of type 2 diabetes mellitus Hypertension Sibling Family history of diabetes mellitus in first degree relative Family history of congenital heart disease Lung cancer Other Diabetes mellitus Family history of throat cancer Social History Social History Smoking packs per day: 0.5 Smoking cigarettes per day: 10.0 Years smoked: 2 Smoking pack-years: 1.00 Smoking status: Former smoker Tobacco type: cigarettes Second hand tobacco smoke exposure: No Smoking end date: 11/26/00 Additional smoking assessment comments: Smoked only as a teenager Alcohol intake: never Substance use: never Substance use type: does not use Gender sarath
[2021-11-09] MEDS: SODIUM CHLORIDE 0.9% IV 1,000 ML 999 ML IV CONT (01:52)
[2021-11-09 03:42] LABS: EDCOVIDSCREEN Negative (Negative)
--- NOTE | 2021-11-09 03:58 | PC.NURSE ---
made contact with [facility] to transfer pt to [facility] [address] [facility] for [employer] [id number]
[2021-11-09] MEDS: HYDROcodone/acetaminophen (*CRX) 5-325 MG TABLET 1 TAB PO (04:22)
[2021-11-09] MEDS: CALCIUM CARBONATE (TUMS) 500 MG (200 MG ELEMENTAL) PO (05:18)
--- NOTE | 2021-11-09 05:19 | PC.NURSE ---
will called ER pushing back eta until 629. i have made contact with [facility] and [facility] to transfer pt. both companies declined.
--- NOTE | 2021-11-09 06:38 | PC.NURSE ---
made contact with will for a new eta of [phone]
== END 2021-11-09 08:30 | disposition short-term general hospital (02) ==
PROVIDERS: Emergency Provider Emergency Medicine; PCP Family Medicine
DX: R41.82 Altered mental status, unspecified (principal); E11.9 Type 2 diabetes mellitus without complications; K21.9 Gastro-esophageal reflux disease without esophagitis; E78.49 Other hyperlipidemia; G47.30 Sleep apnea, unspecified; M19.90 Unspecified osteoarthritis, unspecified site; Z79.4 Long term (current) use of insulin; Z90.13 Acquired absence of bilateral breasts and nipples; Z96.652 Presence of left artificial knee joint; Z87.891 Personal history of nicotine dependence; C50.919 Malignant neoplasm of unspecified site of unspecified female breast; C79.31 Secondary malignant neoplasm of brain; C79.51 Secondary malignant neoplasm of bone; Z79.899 Other long term (current) drug therapy; G62.82 Radiation-induced polyneuropathy; R16.0 Hepatomegaly, not elsewhere classified; R91.8 Other nonspecific abnormal finding of lung field
CPT/HCPCS: 36415; 70450; 71275; 74177; 80053; 81001; 83605; 83690; 85025; 87426; 93005; 96360; 96361; 99285; A9270; C9803; J7030; Q9967